=== PATIENT | female | born 1930 | race Asian ===

== ENCOUNTER 2016-12-01 11:04 | Inpatient (IN) | payer OTHER, BC ==
--- NOTE | 2016-12-01 11:43 | CPEKG ---
Heart Rate: 76 RR Interval: 789 P-R Interval: 200 QRSD Interval: 74 QT Interval: 400 QTC Interval: 450 P Tenmile: 41 QRS Tenmile: 11 T Wave Tenmile: 21 EKG Severity - NORMAL ECG - EKG Impression: SINUS RHYTHM Electronically Signed By: Nixon Duffy 01-Dec-2016 22:05:56
[2016-12-01] MEDS ORDERED: NS 1,000 ML IV ONE ×2 (13:15→15:38)
--- NOTE | 2016-12-01 13:20 | EDPHY ---
H & P Stated Complaint: right knee pain, post fall last night, genrealized weakness increasing, cgh Time Seen by Provider: 12/01/16 11:37 HPI/ROS: CHIEF COMPLAINT: FALL HISTORY OF PRESENT ILLNESS: The patient is a 85-year-old female who fell out of bed yesterday evening and has left knee pain. Her left leg is shorter than the left. Her daughter states that it is slightly shorter at baseline but not this much shorter. The patient denies having hip pain. She also has mild elbow pain. She denies hitting her head or back. She has a history of poor mobility and uses a walker. She has been through physical therapy several times. Her daughter states however that today her mobility is much worse than usual and she is barely able to put any weight at all on her left leg. She has a history of high blood pressure and laminectomy. Daughter also states that she has had a mild cold for the last week and gets winded easily when she tries to walk. she has also had a dry cough. No fevers. No sore throat or runny nose. Her primary is Dr. Morel. REVIEW OF SYSTEMS: Constitutional: denies: chills, fever, recent illness, recent injury EENTM: denies: blurred vision, double vision, nose congestion Respiratory: Mild cough and shortness of breath with exertion Cardiac: denies: chest pain, irregular heart rate, lightheadedness, palpitations Gastrointestinal/Abdominal: denies: abdominal pain, diarrhea, nausea, vomiting, blood streaked stools Genitourinary: denies: dysuria, frequency, hematuria, pain Musculoskeletal: See HPI Skin: denies: lesions, rash, jaundice, bruising Neurological: denies: headache, numbness, paresthesia, tingling, dizziness, weakness Hematologic/Lymphatic: denies: blood clots, easy bleeding, easy bruising Immunologic/allergic: denies: HIV/AIDS, transplant EXAM: GENERAL: Well-appearing, well-nourished and in no acute distress. HEAD: Atraumatic, normocephalic. EYES: Pupils equal round and reactive to light, extraocular movements intact, sclera anicteric, conjunctiva are normal. ENT: TMs normal, nares patent, oropharynx clear without exudates. Moist mucous membranes. NECK: Normal range of motion, supple without lymphadenopathy or JVD. LUNGS: Breath sounds clear to auscultation bilaterally and equal. No wheezes rales or rhonchi. HEART: Regular rate and rhythm without murmurs, rubs or gallops. ABDOMEN: Soft, nontender, normoactive bowel sounds. No guarding, no rebound. No masses appreciated. BACK: No CVA tenderness, no spinal tenderness, step-offs or deformities EXTREMITIES: The left leg to inches shorter than the right, pain with logroll left and right. No pain with knee flexion, no laxity with valgus and varus movement or anterior-posterior drawer. NEUROLOGICAL: Cranial nerves II through XII grossly intact. Normal speech, normal gait. 5/5 strength, normal movement in all extremities, normal sensation PSYCH: Normal mood, normal affect. SKIN: Warm, dry, normal turgor, no visible rashes or lesions. Source: Patient Exam Limitations: No limitations - Personal History Current Tetanus/Diphtheria Vaccine: Yes Current Tetanus Diphtheria and Acellular Pertussis (TDAP): Yes - Medical/Surgical History Hx Asthma: No Hx Chronic Respiratory Disease: No Hx Diabetes: No Hx Cardiac Disease: No Hx Renal Disease: No Hx Cirrhosis: No Hx Alcoholism: No Hx HIV/AIDS: No Hx Splenectomy or Spleen Trauma: No Other PMH: PMH:skin cancer, HTN, high chol, memory loss, hx falls,. chronic shoulder pain left, arthritis. PSH:appy, hyst, spinal fusion, lami, cyst removal - Family History Significant Family History: No pertinent family hx - Social History Smoking Status: Never smoked Alcohol Use: Sober Drug Use: None Constitutional: Initial Vital Signs Temperature (C) 36.5 C 12/01/16 11:11 Heart Rate 90 12/01/16 11:11 Respiratory Rate 18 12/01/16 11:11 Blood Pressure 148/61 H 12/01/16 11:11 O2 Sat (%) 90 L 12/01/16 11:11 O2 Delivery Mode Room Air Allergies/Adverse Reactions: meloxicam Allergy (Verified 12/01/16 11:17) Penicillins Allergy (Verified 12/01/16 11:17) Home Medications: Medication Instructions Recorded Atorvastatin Calcium [Lipitor 20 20 mg PO DAILY 12/01/16 mg (*)] Cholecalciferol Vit D3 [Vitamin D3 2,000 units PO BID 12/01/16 (*)] Cyanocobalamin [Vitamin B12 (*)] 500 mcg PO DAILY 12/01/16 Herbals/Supplements -Info Only 1 ea PO DAILY 12/01/16 Hydrochlorothiazide [HCTZ (*)] 12.5 mg PO DAILY 12/01/16 Irbesartan [Avapro] 300 mg PO DAILY 12/01/16 Memantine HCl [Namenda 5 mg (*)] 5 mg PO DAILY 12/01/16 Tolterodine Tartrate [Detrol] 1 mg PO DAILY 12/01/16 Medical Decision Making - Diagnostics Imaging: X-ray: Knee x-ray was obtained. I viewed the images myself on the PACS system. My interpretation of the images is: Negative. The radiologist interpretation is pending. X-ray: Elbow x-ray was obtained. I viewed the images myself on the PACS system. My interpretation of the images is: Negative. The radiologist interpretation is pending. X-ray: Left hip x-ray was obtained. I viewed the images myself on the PACS system. My interpretation of the images is: Shortened, old fracture, nothing acute. The radiologist interpretation is old necrotic changes. X-ray: Chest x-ray was obtained. I viewed the images myself on the PACS system. My interpretation of the images is: negative for acute disease . The radiologist interpretation is pending. ED Course/Re-evaluation: 2:45 p.m. I discussed the case with Dr MARIA ELENA Verdugo who will admit to the medical service. Have ordered antibiotics for the patient's urinary tract infection. I feel that this may be responsible for her weakness and decreased ability to ambulate. Also she has a obliterated left hip joint although it appears to be old. I have paged Radiology to discuss. I discussed the hip with Radiology. They state that it is likely necrosis that had not been treated. Most likely her knee pain is radiating from the hip. No significant injury seen on knee x-ray. I will treat with Rocephin and admit for weakness and urinary tract infection physical therapy. Differential Diagnosis: Partial list of the Differential diagnosis considered include but were not limited to; hip fracture, knee injury, urinary tract infection, dehydration, generalized weakness and although unlikely based on the history and physical exam, I also considered CVA, arrhythmia, head injury. - Data Points Laboratory Results: Laboratory Results 12/01/16 11:50 12/01/16 11:50 12/01/16 12/01/16 12/01/16 14:10 13:22 11:50 WBC 6.49 10^3/uL (3.80-9.50) RBC 3.93 L 10^6/uL (4.18-5.33) Hgb 12.0 L g/dL (12.6-16.3) Hct 34.9 L % (38.0-47.0) MCV 88.8 fL (81.5-99.8) MCH 30.5 pg (27.9-34.1) MCHC 34.4 g/dL (32.4-36.7) RDW 13.2 % (11.5-15.2) Plt Count 156 10^3/uL (150-400) MPV 11.7 fL (8.7-11.7) Neut % (Auto) 72.0 % (39.3-74.2) Lymph % (Auto) 18.2 % (15.0-45.0) Peach % (Auto) 9.2 % (4.5-13.0) Eos % (Auto) 0.2 L % (0.6-7.6) Baso % (Auto) 0.2 L % (0.3-1.7) Nucleat RBC Rel Count 0.0 % (0.0-0.2) Absolute Neuts (auto) 4.68 10^3/uL (1.70-6.50) Absolute Lymphs (auto) 1.18 10^3/uL (1.00-3.00) Absolute Monos (auto) 0.60 10^3/uL (0.30-0.80) Absolute Eos (auto) 0.01 L 10^3/uL (0.03-0.40) Absolute Basos (auto) 0.01 L 10^3/uL (0.02-0.10) Absolute Nucleated RBC 0.00 10^3/uL (0-0.01) Immature Gran % 0.2 % (0.0-1.1) Immature Gran # 0.01 10^3/uL (0.00-0.10) Sodium 131 L mEq/L (134-144) Potassium 4.3 mEq/L (3.5-5.2) Chloride 94 L mEq/L (97-110) Carbon Dioxide 25 mEq/l (22-31) Anion Gap 12 mEq/L (8-16) BUN 13 mg/dL (7-23) Creatinine 0.7 mg/dL (0.6-1.0) Estimated GFR > 60 Glucose 107 H mg/dL (70-100) Calcium 9.2 mg/dL (8.5-10.4) Urine Color YELLOW Urine Appearance HAZY Urine pH 7.0 (5.0-7.5) Ur Specific [place] 1.012 (1.002-1.030) Urine Protein NEGATIVE (NEGATIVE) Urine Ketones NEGATIVE (NEGATIVE) Urine Blood 1+ H (NEGATIVE) Urine Nitrate POSITIVE H (NEGATIVE) Urine Bilirubin NEGATIVE (NEGATIVE) Urine Urobilinogen NEGATIVE EU (0.2-1.0) Ur Leukocyte Esterase 3+ H (NEGATIVE) Urine RBC 1-3 /hpf (0-3) Urine WBC 50-182 H /hpf (0-3) Ur Epithelial Cells Not Reported Urine Bacteria 4+ H /hpf (NONE SEEN) Urine Mucus TRACE /lpf (NONE-1+) Ur Culture Indicated? INDICATED H (NI) Urine Glucose NEGATIVE (NEGATIVE) Influenza Typ A,B (DFA) NEGATIVE FOR FLU (NEGATIVE) Group A Strep Screen NEGATIVE (NEGATIVE) Medications Given: Discontinued Medications Sodium Chloride (Ns) 1,000 mls @ 0 mls/hr IV ONCE ONE PRN Reason: Wide Open Stop: 12/01/16 13:16 Last Admin: 12/01/16 14:13 Dose: 1,000 mls Ceftriaxone Sodium/Dextrose (Rocephin 1 Gm (Premix)) 50 mls @ 100 mls/hr IV EDNOW ONE PRN Reason: Protocol Stop: 12/01/16 15:04 Last Admin: 12/01/16 15:19 Dose: 50 mls Departure - Departure Disposition: [facility] Acute Clinical Impression: Weakness Urinary tract infection Qualifiers: Urinary tract infection type: acute cystitis Hematuria presence: without hematuria Qualifier Code: (N30.00) Acute cystitis without hematuria Condition: Fair
[2016-12-01 13:22] LABS: % IMMATURE GRANULYOCYTES 0.2 % (0.0-1.1); ABSOLUTE IMMATURE GRANULOCYTES 0.01 10^3/uL (0.00-0.10); ADD DIFF? NO; ADD MORPH? NO; ADD SCAN? NO; ATYPICAL LYMPHOCYTE FLAG 30 (0-99); FRAGMENT RBC FLAG 0 (0-99); HEMATOCRIT 34.9 % (38.0-47.0); LEFT SHIFT FLG 0 (0-99); LIPEMIA HEMOLYSIS FLAG 90 (0-99); MEAN CELL HEMOGLOBIN 30.5 pg (27.9-34.1); MEAN CELL HEMOGLOBIN CONCENTR. 34.4 g/dL (32.4-36.7); MEAN CELL VOLUME 88.8 fL (81.5-99.8); MEAN PLATELET VOLUME 11.7 fL (8.7-11.7); PLATELET CLUMPS FLAG 0 (0-99); PLATELET COUNT 156 10^3/uL (150-400); RED BLOOD CELL COUNT 3.93 10^6/uL (4.18-5.33); RED CELL DISTRIBUTION WIDTH 13.2 % (11.5-15.2)
[2016-12-01 13:28] LABS: ANION GAP 12 mEq/L (8-16); CALCIUM 9.2 mg/dL (8.5-10.4); CARBON DIOXIDE 25 mEq/l (22-31); CHLORIDE 94 mEq/L (97-110); CREATININE 0.7 mg/dL (0.6-1.0); GLOMERULAR FILTRATION RATE > 60; GLUCOSE 107 mg/dL (70-100); POTASSIUM 4.3 mEq/L (3.5-5.2); SODIUM 131 mEq/L (134-144)
[2016-12-01 13:47] LABS: COLOR YELLOW; LEUKOCYTE ESTERASE,URINE 3+ (NEGATIVE); NITRITE,URINE POSITIVE (NEGATIVE)
[2016-12-01 14:07] LABS: BACTERIA 4+ /hpf (NONE SEEN); MUCUS TRACE /lpf (NONE-1+); WBC,URINE 50-182 /hpf (0-3)
[2016-12-01] MEDS ORDERED: ACETAMINOPHEN 325 MG TAB PO PRN (15:38)
[2016-12-01] MEDS ORDERED: ONDANSETRON 4 MG/2 ML VIAL IVP PRN (15:38)
--- NOTE | 2016-12-01 15:41 | DX ---
Bilateral Hips Left Elbow Left Knee Chest, Two Views December 01, 2016 Clinical History: 85-year-old female who fell last night, and complains of pain. Comparison Study: None. Findings: LEFT ELBOW (Three Views, at 1:27 p.m.): The bones are demineralized. A metallic watch is seen over t he distal radius and ulna at the level of the wrist, and there is some vascular catheter tubing over the proximal forearm. There is a tiny degenerative enthesophyte along the olecranon. There is no elbo w joint effusion. There is a spur associated with the coronoid process of the proximal ulna. The radi al head is intact, as is the supracondylar humerus. Impression: No acute abnormality. BILATERAL HIPS (AP Pelvis and Frogleg Lateral of Each Hip, Three Views Total, at 1:11 p.m): There is chronic remodeling of the left femoral head and subchondral sclerosis along the apposing articular s urface of the acetabulum. 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 There is no convincing acute osseous abnormality. The ischial pubi c rami are intact. Iiirgxjg-ay-ranicl degenerative osteoarthrosis of the right hip is also observed. There is no symphysis pubis or SI joint diastasis. There are some degenerative features of the lower lumbar spine and the SI joints. The sacral arcuate lines are well-contoured. The sigmoid colon is air -filled, and there is fecal material in the rectum overlying the symphysis pubis. This case was discu ssed with Dr. Riccardo Rose. Impression: 1. Severe degenerative change of the left hip with chronic osteonecrosis and osseous remodeling of th e femoral-acetabular joint space, with no convincing acute osseous abnormality. 2. Hieykuxn-gv-afurmu right hip osteoarthrosis. If there is further clinical concern regarding a supe rimposed acute abnormality, MR imaging could be considered. LEFT KNEE (Four Views, at 1:20 p.m.): The bones are demineralized. There is no acute fracture or disl ocation. There is no suprapatellar joint effusion. There are vascular calcifications over the poplite al fossa. On the sunrise view, there is no patellofemoral joint space narrowing or patellar subluxati on. The tibial plateau is intact. Impression: Bone demineralization, with no acute osseous abnormality. CHEST (AP Upright and Lateral Views, at 1:36 p.m.): Telemetry monitoring lead lines are noted. The ca rdiac silhouette is enlarged, with a left ventricular configuration. There is tortuosity of the desce nding thoracic aorta and also of the right innominate vasculature. There is no focal infiltrate, atel ectasis, pleural effusion, peripheral interstitial edema, or pneumothorax. There is no rib fracture. There are senescent features of the spine and the bones are diffusely demineralized. There are some m ild superior cortical endplate concave compressions at T8, T9, and T10, and there is a moderate compr ession fracture at T11, a severe compression fracture at T12 (with dorsal retropulsion), and a modera te compression fracture at L1. The above features would be consistent with underlying severe osteopor osis. If there is further clinical concern regarding an acute superimposed abnormality, MR imaging co uld be considered Impression: 1. Cardiac silhouette enlargement without congestive heart failure or focal infiltrate. 2. There is no rib fracture or pneumothorax. 3. Age-indeterminate lower thoracic and upper lumbar compression fractures. Clinical correlation is s uggested. A test result has been communicated to a licensed care provider and documented in [employer], 3:20:03 PM , 12/01/2016, [employer] Message ID [id number].
[2016-12-01] MEDS ORDERED: traMADol 50 MG TAB PO PRN (15:43)
--- NOTE | 2016-12-01 16:19 | GHP ---
[f rep st] HISTORY AND PHYSICAL DATE OF ADMISSION: 12/01/2016 CHIEF COMPLAINT: Fatigue and weakness. HISTORY OF PRESENT ILLNESS: An 85-year-old female with a history of hypertension and hyperlipidemia, who presents with overall weakness, keeping her from being able to walk the morning of presentation. The patient denies any subjective fevers or chills. Reports some abdominal and flank pain. Denies any shortness of breath, any pleuritic chest pain, chest pain, palpitations. Denies any dizziness, vision changes, dysphagia, headache, dysuria or hematuria. The patient does have chronic urinary ret ention for which she takes medications. Does not describe having had recent urinary tract infection. She denies any cough, any shortness of breath, or any new rashes. She lives at home with her arlynugh reymundo. PAST MEDICAL HISTORY: 1. Hypertension. 2. Hyperlipidemia. 3. Osteoarthritis of the hips, walks with a walker. 4. Early cognitive decline. SOCIAL HISTORY: Negative for tobacco, alcohol or illicit drugs. The patient lives in her home with her daughter providing 24-hour care. FAMILY HISTORY: Positive for diabetes. ADVANCED DIRECTIVES: The patient is do not resuscitate. Her daughter would be her medical decision maker. REVIEW OF SYSTEMS: A 10-point review of systems is negative with the exception of that reported in t he HPI. PHYSICAL EXAMINATION: VITAL SIGNS: Blood pressure 121/68, heart rate 82, respiratory rate 16, 92% o n room air, 36.8. GENERAL: This is a very petite-appearing elderly female, lying flat in bed. HEEN T: Notable for moist mucous membranes. Eye exam is negative for any icterus. CARDIAC: Patient has regular rate and rhythm. PULMONARY: Good respiratory effort. Clear to auscultation bilaterally. GASTROINTESTINAL: Positive bowel sounds. ABDOMEN: Tender in the suprapubic area. No rebound or gu arding. MUSCULOSKELETAL: Patient's left leg is notably 1-2 inches shorter than her right. Does hav e pain of the left hip with passive and active range of motion. SKIN: Negative for any rashes. BAYLEE ROLOGIC: She is alert and oriented x3. PSYCHIATRIC: She is pleasant and cooperative on interview a nd examination. DATA: White count is 6.4, hematocrit 34.9, platelet count of 156. Sodium 131, creatinine 0.7, blood glucose 107. Urinalysis shows 50 to 182 white blood cells, positive nitrites, 3+ leuk esterase, 1+ blood. She is negative for influenza and group A strep. RADIOLOGY: Chest x-ray, which I personally reviewed and interpreted, shows no acute infiltrates or e olly. Hip x-ray, which I personally reviewed and interpreted, shows severe joint deformation of the left hip consistent with old osseous injuries. There is bony remodeling per Radiology. No acute oss eous injury is described. ASSESSMENT AND PLAN: This is an 85-year-old female presenting with: 1. Fatigue. 2. Acute pyelonephritis. Patient has abdominal discomfort, grossly abnormal urine and systemic symp toms of fatigue and lethargy. Urine cultures have been sent from the emergency department. Will emp irically treat with IV ceftriaxone. Awaiting culture data. Will additionally fluid resuscitate and follow her clinical exam. 3. Hyponatremia. Suspect this is likely secondary to hypovolemia, may be compounded by her home use of hydrochlorothiazide. Will hold the HCTZ, fluid resuscitate overnight and recheck her BMP in the morning. 4. Hypertension. Will continue her other home antihypertensives without change, including irbesarta n. 5. Early dementia. Will continue patient's Namenda. 6. Chronic urinary frequency and retention. Will continue patient's home medications without altera tion. 7. Prophylaxis with Lovenox. 8. Diet regular. 9. Disposition: I expect greater than 2 midnights. The patient is quite elderly, weak. Will requi re IV antibiotics, IV fluid resuscitation, and consultation with Physical Therapy for appropriate dis position planning. I have discussed the case with the emergency room. The patient will be triaged t o the medical-surgical floor for care. /[id number]/MODL
[2016-12-01] MEDS: CHOLECALCIFEROL VIT D3 2,000 UNITS TAB/CAP PO SCH (20:51)
[2016-12-02] MEDS: MEMANTINE HCL 5 MG TAB PO SCH (08:56)
[2016-12-02] MEDS: IRBESARTAN 150 MG TAB PO SCH (08:56)
[2016-12-02] MEDS: TOLTERODINE TARTRATE 1 MG TAB PO SCH (08:56)
[2016-12-02] MEDS: ENOXAPARIN 40 MG/0.4 ML SYR SC SCH (08:57)
[2016-12-02] MEDS: ATORVASTATIN CALCIUM 20 MG TAB PO SCH (08:57)
[2016-12-02] MEDS: CYANO/VITAMIN B12 1000 MCG TAB PO SCH (08:57)
[2016-12-02] MEDS: CHOLECALCIFEROL VIT D3 2,000 UNITS TAB/CAP PO SCH ×2 (08:57→20:39)
[2016-12-02] MEDS ORDERED: Herbals/Supplements -Info Only PO SCH (09:00)
[2016-12-02 13:14] LABS: % IMMATURE GRANULYOCYTES 0.3 % (0.0-1.1); ABSOLUTE IMMATURE GRANULOCYTES 0.02 10^3/uL (0.00-0.10); ADD DIFF? NO; ADD MORPH? NO; ADD SCAN? NO; ATYPICAL LYMPHOCYTE FLAG 60 (0-99); FRAGMENT RBC FLAG 0 (0-99); HEMOGLOBIN 11.9 g/dL (12.6-16.3); LEFT SHIFT FLG 20 (0-99); LIPEMIA HEMOLYSIS FLAG 80 (0-99); MEAN CELL HEMOGLOBIN 30.1 pg (27.9-34.1); MEAN CELL HEMOGLOBIN CONCENTR. 33.1 g/dL (32.4-36.7); MEAN CELL VOLUME 91.1 fL (81.5-99.8); MEAN PLATELET VOLUME 10.7 fL (8.7-11.7); PLATELET CLUMPS FLAG 10 (0-99); PLATELET COUNT 154 10^3/uL (150-400); RED BLOOD CELL COUNT 3.95 10^6/uL (4.18-5.33); RED CELL DISTRIBUTION WIDTH 13.4 % (11.5-15.2)
[2016-12-02] MEDS ORDERED: guaiFENesin/CODEINE PHOS 10 ML UDCUP PO PRN ×2 (13:24→16:51)
[2016-12-02 13:50] LABS: ANION GAP 13 mEq/L (8-16); CARBON DIOXIDE 23 mEq/l (22-31); CHLORIDE 96 mEq/L (97-110); CREATININE 0.8 mg/dL (0.6-1.0); GLOMERULAR FILTRATION RATE > 60; GLUCOSE 105 mg/dL (70-100); POTASSIUM 4.5 mEq/L (3.5-5.2); SODIUM 132 mEq/L (134-144)
[2016-12-02] MEDS ORDERED: BENZONATATE 100 MG CAP PO PRN ×2 (16:51→17:29)
--- NOTE | 2016-12-02 17:38 | HOSPPROG ---
Hospitalist Progress Note Assessment/Plan: Assessment: 85-year-old female presents with acute mechanical fall in the setting of generalized weakness secondary to acute pyelonephritis Plan: 1. Mechanical fall. Acute, most likely secondary to generalized weakness in the setting of infection, received full trauma evaluation -discussed with Dr. Alberts, reports to me that the patient has T and L-spine compression fractures, unknown chronicity with osteonecrosis in the left hip -the patient currently has no tenderness to palpation over her back and is not expressing any back pain, suspect these compression fractures are subacute -will provide calcium and vitamin-D supplementation 2. Pyelonephritis. Acute, evidenced by positive urinalysis plus urinary symptoms plus left flank tenderness to palpation -a day 2 of 7 of antibiotics, continue IV ceftriaxone -abdominal pain improving -urine culture currently pending, monitor for speciation and sensitivity to help guide appropriate antibiotic therapy moving forward 3. Cough. Acute, unclear whether patient has also recently been experiencing a URI -chest x-ray personally interpreted, no evidence of focal airspace disease -physical exam does not reveal acute reactive airways -will attempt symptomatic control with guaifenesin/codeine, Tessalon Perles as needed, duo nebs -continue to monitor CBC to ensure that she is not of all the into infection which would require follow-up chest imaging -get influenza PCR 4. Hyponatremia. Acute, most likely secondary to hypovolemia in the setting of infection -serum sodium level marginally improving with increased oral intake -continue IV fluids, monitor serum sodium level daily Diet. Regular diet Prophylaxis. High risk patient, Lovenox 40 Code status. Do not resuscitate Disposition. Anticipated discharge is uncertain this time, patient continues to have generalized weakness rendering her unable to safely ambulate or complete her ADLs, requiring assistance and most likely [facility] facility placement. Patient was appropriately designated as inpatient admission status at the time of her admission by Dr. Verdugo, with anticipation of greater than 2 midnight length of stay based on reasonable medical necessity including acute pyelonephritis, acute mechanical fall in the setting of an elderly individual. Subjective: Patient's daughter present, discussed patient's ability to ambulate , her needs [facility] facility, her desire to go to a facility where her is currently receiving hospice care Objective: Vital Signs Temp Pulse Resp BP Pulse Ox 36.4 C 86 16 132/80 H 93 12/02/16 15:30 12/02/16 15:30 12/02/16 15:30 12/02/16 15:30 12/02/16 15:30 Laboratory Results 12/02/16 12:54 12/02/16 12:54 12/01/16 12/02/16 12/03/16 05:59 05:59 05:59 Intake Total 50 1350 Output Total 400 720 Balance -350 630 - Time Spent With Patient Time Spent with Patient: greater than 35 minutes Time Spent with Patient: Greater than 35 minutes spent on this patients care, greater than 50% of time spent counseling, educating, and coordinating care regarding the above mentioned plan. - Physical Exam Cardiovascular: regular rate and rhythym, systolic murmur (2/6 systolic murmur at the sternum and apex), No irregularly irregular, No tachycardia, No edema Respiratory: other (Ongoing cough), No reduced air movement, No expiratory wheeze, No inspiratory crackles, No bronchial breath sounds Gastrointestinal: normoactive bowel sounds, soft, non-tender abdomen, no palpable masses Musculoskeletal: other (Mild tenderness to palpation in the left hip, pain on flexion at 110 degrees in the left hip, no tenderness to palpation over the T or L-spine) Neurologic: AAOx3, sensation intact bilaterally Psychiatric: interacting appropriately, not anxious, not encephalopathic, thought process linear ICD10 Worksheet Patient Problems: Problems Problem Status Diagnosed Urinary tract infection Acute Weakness Acute
[2016-12-02] MEDS: IPRATROPIUM/ALBUTEROL 3 ML DEYVIAL IH SCH ×3 (18:02→21:12)
[2016-12-03] MEDS: IPRATROPIUM/ALBUTEROL 3 ML DEYVIAL IH SCH ×3 (05:39→17:02)
[2016-12-03 06:13] LABS: % IMMATURE GRANULYOCYTES 0.2 % (0.0-1.1); ABSOLUTE IMMATURE GRANULOCYTES 0.01 10^3/uL (0.00-0.10); ADD DIFF? NO; ADD MORPH? NO; ADD SCAN? NO; ATYPICAL LYMPHOCYTE FLAG 70 (0-99); FRAGMENT RBC FLAG 0 (0-99); HEMATOCRIT 30.9 % (38.0-47.0); HEMOGLOBIN 10.5 g/dL (12.6-16.3); LEFT SHIFT FLG 0 (0-99); LIPEMIA HEMOLYSIS FLAG 90 (0-99); MEAN CELL HEMOGLOBIN 30.3 pg (27.9-34.1); MEAN PLATELET VOLUME 11.1 fL (8.7-11.7); PLATELET CLUMPS FLAG 0 (0-99); PLATELET COUNT 139 10^3/uL (150-400); RED BLOOD CELL COUNT 3.47 10^6/uL (4.18-5.33); RED CELL DISTRIBUTION WIDTH 13.4 % (11.5-15.2)
[2016-12-03 06:27] LABS: ANION GAP 10 mEq/L (8-16); CALCIUM 8.5 mg/dL (8.5-10.4); CARBON DIOXIDE 24 mEq/l (22-31); CHLORIDE 100 mEq/L (97-110); CREATININE 0.8 mg/dL (0.6-1.0); GLOMERULAR FILTRATION RATE > 60; GLUCOSE 83 mg/dL (70-100); SODIUM 134 mEq/L (134-144)
[2016-12-03] MEDS: MEMANTINE HCL 5 MG TAB PO SCH (08:49)
[2016-12-03] MEDS: TOLTERODINE TARTRATE 1 MG TAB PO SCH (08:50)
[2016-12-03] MEDS: CHOLECALCIFEROL VIT D3 2,000 UNITS TAB/CAP PO SCH ×2 (08:50→19:53)
[2016-12-03] MEDS: ATORVASTATIN CALCIUM 20 MG TAB PO SCH (08:50)
[2016-12-03] MEDS: CYANO/VITAMIN B12 1000 MCG TAB PO SCH (08:50)
[2016-12-03] MEDS: ENOXAPARIN 40 MG/0.4 ML SYR SC SCH (08:51)
[2016-12-03] MEDS: IRBESARTAN 150 MG TAB PO SCH (08:51)
--- NOTE | 2016-12-03 15:57 | HOSPPROG ---
Hospitalist Progress Note Assessment/Plan: Assessment: 85-year-old female presents with acute mechanical fall in the setting of generalized weakness secondary to acute pyelonephritis Plan: 1. Mechanical fall. Acute, most likely secondary to generalized weakness in the setting of infection, received full trauma evaluation -T and L-spine compression fractures, unknown chronicity with osteonecrosis in the left hip -the patient currently has no tenderness to palpation over her back and is not expressing any back pain, suspect these compression fractures are subacute -will provide calcium and vitamin-D supplementation 2. Pyelonephritis. Acute, evidenced by positive urinalysis plus urinary symptoms plus left flank tenderness to palpation -a day 3 of 7 of antibiotics, continue IV ceftriaxone -abdominal tenderness improving -urine culture currently pending, monitor for speciation and sensitivity to help guide appropriate antibiotic therapy moving forward 3. Cough. Acute, unclear whether patient has also recently been experiencing a URI -chest x-ray personally interpreted, no evidence of focal airspace disease -physical exam does not reveal acute reactive airways -attempting symptomatic control with guaifenesin/codeine, Tessalon Perles as needed, duo nebs -continue to monitor CBC to ensure that she is not of all the into infection which would require follow-up chest imaging -influenza PCR neg 4. Hyponatremia. Acute, most likely secondary to hypovolemia in the setting of infection -resolved Diet. Regular diet Prophylaxis. High risk patient, Lovenox 40 Code status. Do not resuscitate Disposition. Anticipated discharge is uncertain this time, pending safe discharge level of care obtained, currently unsafe to ambulate independently Subjective: Patient denies any pain, cough is improving Objective: Vital Signs Temp Pulse Resp BP Pulse Ox 36.6 C 79 17 95/65 L 92 12/03/16 14:37 12/03/16 14:37 12/03/16 14:37 12/03/16 14:37 12/03/16 14:37 Laboratory Results 12/03/16 04:55 12/03/16 04:55 12/02/16 12/03/16 12/04/16 05:59 05:59 05:59 Intake Total 50 1350 Output Total 400 720 275 Balance -350 630 -275 - Physical Exam Constitutional: no apparent distress, appears nourished, not in pain Cardiovascular: systolic murmur (2/6 at the sternum and apex), No irregularly irregular, No tachycardia, No edema Respiratory: no respiratory distress, no rales or rhonchi, clear to auscultation , No expiratory wheeze, No inspiratory crackles, No bronchial breath sounds Gastrointestinal: normoactive bowel sounds, soft, non-tender abdomen, no palpable masses Neurologic: AAOx3, sensation intact bilaterally Psychiatric: interacting appropriately, not anxious, not encephalopathic, thought process linear ICD10 Worksheet Patient Problems: Problems Problem Status Diagnosed Urinary tract infection Acute Weakness Acute
[2016-12-04] MEDS: IPRATROPIUM/ALBUTEROL 3 ML DEYVIAL IH SCH ×3 (00:17→09:19)
[2016-12-04 05:06] VITALS: TEMP 98.2
[2016-12-04 05:38] LABS: % IMMATURE GRANULYOCYTES 0.2 % (0.0-1.1); ABSOLUTE IMMATURE GRANULOCYTES 0.01 10^3/uL (0.00-0.10); ADD DIFF? NO; ADD MORPH? NO; ADD SCAN? YES; FRAGMENT RBC FLAG 0 (0-99); HEMATOCRIT 31.4 % (38.0-47.0); HEMOGLOBIN 10.3 g/dL (12.6-16.3); LEFT SHIFT FLG 10 (0-99); LIPEMIA HEMOLYSIS FLAG 80 (0-99); MEAN CELL HEMOGLOBIN 29.9 pg (27.9-34.1); MEAN CELL HEMOGLOBIN CONCENTR. 32.8 g/dL (32.4-36.7); MEAN PLATELET VOLUME 10.7 fL (8.7-11.7); PLATELET CLUMPS FLAG 0 (0-99); PLATELET COUNT 147 10^3/uL (150-400); RED BLOOD CELL COUNT 3.45 10^6/uL (4.18-5.33); RED CELL DISTRIBUTION WIDTH 13.3 % (11.5-15.2)
[2016-12-04 05:47] LABS: ATYPICAL LYMPHOCYTE FLAG 150 (0-99)
[2016-12-04 05:50] LABS: ANION GAP 11 mEq/L (8-16); CALCIUM 8.8 mg/dL (8.5-10.4); CARBON DIOXIDE 24 mEq/l (22-31); CHLORIDE 101 mEq/L (97-110); CREATININE 0.8 mg/dL (0.6-1.0); GLOMERULAR FILTRATION RATE > 60; GLUCOSE 97 mg/dL (70-100); POTASSIUM 4.5 mEq/L (3.5-5.2); SODIUM 136 mEq/L (134-144)
[2016-12-04 06:44] LABS: SCAN NEGATIVE
[2016-12-04 07:43] VITALS: BP 154/84
[2016-12-04 09:23] VITALS: PULSE 95; RESP 16; O2SAT 95
[2016-12-04] MEDS: IRBESARTAN 150 MG TAB PO SCH (09:57)
[2016-12-04] MEDS: CYANO/VITAMIN B12 1000 MCG TAB PO SCH (09:57)
[2016-12-04] MEDS: ENOXAPARIN 40 MG/0.4 ML SYR SC SCH (09:58)
[2016-12-04] MEDS: ATORVASTATIN CALCIUM 20 MG TAB PO SCH (09:58)
[2016-12-04] MEDS: CHOLECALCIFEROL VIT D3 2,000 UNITS TAB/CAP PO SCH (09:58)
[2016-12-04] MEDS: MEMANTINE HCL 5 MG TAB PO SCH (09:58)
--- NOTE | 2016-12-04 10:57 | PDIAF ---
- Diagnosis Diagnosis: Pyelonephritis, Weakness, Fall Code Status: Do Not Resuscitate - Medication Management Discharge Medications: Medications to Continue on Transfer Atorvastatin Calcium [Lipitor 20 mg (*)] 20 mg PO DAILY 12/01/16 [Last Taken 08/08] Cholecalciferol Vit D3 [Vitamin D3 (*)] 2,000 units PO BID 12/01/16 [Last Taken 12/01/16] Cyanocobalamin [Vitamin B12 (*)] 500 mcg PO DAILY 12/01/16 [Last Taken 11/30/16] Herbals/Supplements -Info Only 1 ea PO DAILY 12/01/16 [Last Taken 11/30/16] Hydrochlorothiazide [HCTZ (*)] 12.5 mg PO DAILY 12/01/16 [Last Taken 12/01/16] Irbesartan [Avapro] 300 mg PO DAILY 12/01/16 [Last Taken 12/01/16] Memantine HCl [Namenda 5 mg (*)] 5 mg PO DAILY 12/01/16 [Last Taken 11/30/16] Tolterodine Tartrate [Detrol 1MG (*)] 1 mg PO DAILY 12/01/16 [Last Taken ] Acetaminophen [Tylenol 325mg (*)] 650 mg PO Q4HRS PRN #0 tab 12/04/16 [Last Taken Unknown] Albuterol [Proventil Inhaler HFA (*)] 2 puffs IH Q4 PRN #1 mdi 12/04/16 [Last Taken Unknown] Benzonatate [Tessalon Pearles] 100 - 200 mg PO TID PRN #0 cap 12/04/16 [Last Taken Unknown] Ciprofloxacin HCl [Ciprofloxacin] 500 mg PO BID #6 tab 12/04/16 [Last Taken Unknown] Guaifenesin/Codeine Phosphate [Guaifenesin-Codeine Liquid] 10 ml PO Q4 PRN #40 dose 12/04/16 [Last Taken Unknown] Cabinet Installer Antibiotics: Ciprofloxacin 500mg 2xd PO for 3 days [facility] Antibiotic Stop Date: 12/07/16 Discharge Medications: Refer to the Discharge Home Medication list for PRN reason. PICC Care - Routine: N/A - Orders Services needed: Registered Nurse, Certified Hazardous Waste Technician, Physical Therapy, Occupational Therapy Oxygen: NA Diet Recommendation: no restrictions on diet Cobb: Not applicable - Labs/Radiology BMP Date: 12/10/16 Call or Fax Lab and Imaging Results to: Dr. Morel - Follow Up Care Current Providers and Referrals: Orestes Morel MD [Primary Care Provider] - 3 days of d/c SNF/Rehab
--- NOTE | 2016-12-04 11:05 | PDDCSUM ---
Discharge Summary Discharge Summary: DISCHARGE SUMMARY FOLLOW-UP ITEMS: Repeat creatinine BUN and lytes in 1 week with results to Dr. Morel DATE OF ADMISSION: 12/01/2016 DATE OF DISCHARGE: 12/04/2016 DISCHARGE DIAGNOSES: 1. Acute pyelonephritis 2. Acute mechanical fall 3. Acute cough 4. Acute hyponatremia 5. Subacute thoracic and lumbar vertebral body fractures CONSULTATIONS: None PROCEDURES / IMAGING: Chest x-ray demonstrating subacute T and L-spine compression fractures CHIEF COMPLAINT: Acute weakness and mechanical fall SUBJECTIVE: Patient continues to be weak and unable to ambulate or complete ADLs PHYSICAL EXAM ON DISCHARGE: His systolic blood pressure is 1/50, heart rate 60s, afebrile overnight, satting well on room air, no flank tenderness or abdominal tenderness, bowel sounds are present, no inspiratory crackles expiratory wheezes or bronchial breath sounds, lungs are clear to auscultation bilaterally, motor strength is 5/ 5 bilateral lower extremities LABS ON DISCHARGE: Sodium 136, creatinine 0.8, white blood cell count 4200, hemoglobin 10.3 HOSPITAL COURSE BY PROBLEM: 1. Acute pyelonephritis. Evidenced by positive urinalysis plus urinary symptoms plus left flank tenderness to palpation as well as E coli growing in urine culture with greater than 100,000 colonies. Patient received 4 days of IV antibiotic therapy and will complete 3 subsequent days for total of 7 days of antibiotics. She will be receiving ciprofloxacin 500 mg twice daily given her underlying reported penicillin allergy. 2. Acute mechanical fall. Patient's presenting symptom was acute mechanical fall most likely secondary to generalized weakness in the setting of infection. She received a full trauma evaluation and she was found to have subacute thoracic and lumbar spine fractures which will be further discussed below. Patient remained a high fall risk and was unable to complete activities of daily living, requiring [facility]. 3. Acute cough. It is unclear whether patient was also experiencing a URI, but her chest x-ray demonstrates no focal airspace disease and her physical exam did not demonstrate any reactive airway disease. Patient received symptomatic control with guaifenesin/codeine, Tessalon Perles as needed, albuterol inhaler as needed. She will be continued on these supportive measures. 4. Acute hyponatremia. Most likely secondary to hypovolemia in the setting of infection, as well as concomitant use of ARB and hydrochlorothiazide. Patient has had her hydrochlorothiazide held during this hospitalization she received IV fluids. Her serum sodium level has stabilized. She will be re-initiated on her home antihypertensive medications with repeat BUN and creatinine and lytes next week to her PCP. 5. Subacute thoracic and lumbar vertebral body fractures. Patient compression fractures noted on chest x-ray, patient has no tenderness to palpation over the affected areas and I suspect these are subacute fractures, not warranting additional treatment with brace or kyphoplasty. The patient currently has no pain and outside receiving calcium and vitamin-D supplementation no further intervention is indicated. DISCHARGE MEDICATIONS: Please see official discharge medication reconciliation sheet in chart , calcium and vitamin-D supplementation, ciprofloxacin 500 mg twice daily for 3 days, as needed guaifenesin/codeine, Tessalon Perles as needed, albuterol inhaler as needed. DISCHARGE INSTRUCTIONS: Patient should follow up with Dr. Morel approximately 3 days after discharge from prison facility. TIME SPENT: Greater than 30 minutes were spent on direct patient care, as well as discharge planning and preparation.
--- NOTE | 2016-12-04 11:08 | PDIAF ---
- Diagnosis Diagnosis: Pyelonephritis, Weakness, Fall Code Status: Do Not Resuscitate - Medication Management Discharge Medications: Medications to Continue on Transfer Atorvastatin Calcium [Lipitor 20 mg (*)] 20 mg PO DAILY 12/01/16 [Last Taken 08/08] Cholecalciferol Vit D3 [Vitamin D3 (*)] 2,000 units PO BID 12/01/16 [Last Taken 12/01/16] Cyanocobalamin [Vitamin B12 (*)] 500 mcg PO DAILY 12/01/16 [Last Taken 11/30/16] Herbals/Supplements -Info Only 1 ea PO DAILY 12/01/16 [Last Taken 11/30/16] Hydrochlorothiazide [HCTZ (*)] 12.5 mg PO DAILY 12/01/16 [Last Taken 12/01/16] Irbesartan [Avapro] 300 mg PO DAILY 12/01/16 [Last Taken 12/01/16] Memantine HCl [Namenda 5 mg (*)] 5 mg PO DAILY 12/01/16 [Last Taken 11/30/16] Tolterodine Tartrate [Detrol 1MG (*)] 1 mg PO DAILY 12/01/16 [Last Taken ] Acetaminophen [Tylenol 325mg (*)] 650 mg PO Q4HRS PRN #0 tab 12/04/16 [Last Taken Unknown] Albuterol [Proventil Inhaler HFA (*)] 2 puffs IH Q4 PRN #1 mdi 12/04/16 [Last Taken Unknown] Benzonatate [Tessalon Pearles] 100 - 200 mg PO TID PRN #0 cap 12/04/16 [Last Taken Unknown] Calcium Carbonate/Vitamin D3 [Calcium 500-Vit D3 600 Tablet] 1 each PO BID #60 tablet 12/04/16 [Last Taken Unknown] Ciprofloxacin HCl [Ciprofloxacin] 500 mg PO BID #6 tab 12/04/16 [Last Taken Unknown] Guaifenesin/Codeine Phosphate [Guaifen-Codeine 100-10 mg/5 ml] 10 ml PO Q4 PRN # 40 dose 12/04/16 [Last Taken Unknown] Plush Finisher Antibiotics: Ciprofloxacin 500mg 2xd PO for 3 days [facility] Antibiotic Stop Date: 12/07/16 Discharge Medications: Refer to the Discharge Home Medication list for PRN reason. PICC Care - Routine: N/A - Orders Services needed: Registered Nurse, Certified Patient Support Specialist, Physical Therapy, Occupational Therapy Oxygen: NA Diet Recommendation: no restrictions on diet Cobb: Not applicable - Labs/Radiology BMP Date: 12/10/16 Imaging Orders: Please get DEXA scan and Vitamin D level after patient discharged from SNF Call or Fax Lab and Imaging Results to: Dr. Morel - Follow Up Care Current Providers and Referrals: Orestes Morel MD [Primary Care Provider] - 3 days of d/c SNF/Rehab
== END 2016-12-04 12:31 | DRG 690 ==
LOC: OBSVTOIN 15:38 → F1N 15:40
PROVIDERS: ADMIT Hospitalist; ATTEND Hospitalist
DX: N10 Acute pyelonephritis (principal); E87.1 Hypo-osmolality and hyponatremia; M48.54XA Collapsed vertebra, not elsewhere classified, thoracic region, initial encounter for fracture; M48.56XA Collapsed vertebra, not elsewhere classified, lumbar region, initial encounter for fracture; R05 Cough; W06.XXXA Fall from bed, initial encounter; B96.20 Unspecified Escherichia coli [E. coli] as the cause of diseases classified elsewhere; I10 Essential (primary) hypertension; M16.0 Bilateral primary osteoarthritis of hip; E78.5 Hyperlipidemia, unspecified; F03.90 Unspecified dementia, unspecified severity, without behavioral disturbance, psychotic disturbance, mood disturbance, and anxiety; R33.8 Other retention of urine; R35.0 Frequency of micturition; Z66 Do not resuscitate; Z85.820 Personal history of malignant melanoma of skin; Z88.0 Allergy status to penicillin
CPT/HCPCS: 96365; 97162-GP; 97166-GO; 97535-GO; G8978-GP-CL; G8979-GP-CJ; G8987-GO-CL; G8988-GO-CJ; G8989-GO-CJ; J0696; J1650

== ENCOUNTER → 2017-01-11 | Outpatient (CLI) | payer OTHER, BC | LOC: CIMAGING 11:28 | PROVIDERS: ATTEND Internal Medicine | DX: M16.0 Bilateral primary osteoarthritis of hip (principal); M25.561 Pain in right knee; J40 Bronchitis, not specified as acute or chronic | CPT/HCPCS: 71020-PO; 73502-PO; 73562-PO ==

== ENCOUNTER 2017-11-07 23:12 | Inpatient (IN) | payer OTHER, BC ==
--- NOTE | 2017-11-07 23:55 | EDPHY ---
General - History Smoking Status: Never smoked Narrative: CHIEF COMPLAINT: Fall, multiple complaints HISTORY OF PRESENT ILLNESS: Patient arrives by EMS with reports of mechanical fall. She says she was walking this evening with her walker when she tripped. She thinks that her foot slipped on a hardwood floor. She landed on her right hip, right arm and her head. She is not sure if she lost consciousness. She does have a mild headache. She has no neck pain or stiffness. Some mild chest wall tenderness with palpation only. No thoracic back pain. She does have severe lumbar back pain. No abdominal pain at this time, but she did have some lower abdominal discomfort when she fell. She has no pain in the left leg which she does have right hip pain. All these areas are worse with palpation and movement. There is no radiating pain. There is no numbness or tingling of the perineum. There is no numbness or tingling of the arms or legs. No weakness of the arms or legs. The pain in the right hip is too severe for her to bear weight on. She lives in assisted living. No other associated complaints or modifying factors. REVIEW OF SYSTEMS: Ten systems reviewed and are negative unless otherwise noted in the HPI PCP: Physician at the assisted living facility SPECIALISTS: Does not recall PAST MEDICAL HISTORY: Hypertension, dyslipidemia, osteoarthritis SOCIAL HISTORY: Nonsmoker. Lives in assisted living at [facility] FAMILY HISTORY: Noncontributory EXAMINATION General Appearance: Alert, no distress Head: normocephalic, atraumatic. No Gray sign. No raccoon eyes. No scalp laceration or depression. Eyes: Bilateral arcus senilis. Pupils equal and round, no conjunctival pallor or injection. EOMs intact ENT, Mouth: Mucous membranes moist. Airway patent Neck: Normal inspection, supple, no midline tenderness. No crepitus, step-off or deformity. Soft tissue tenderness of the right trapezius. Respiratory: Lungs are clear to auscultation. No wheezing rhonchi or crackles Cardiovascular: Regular rate and rhythm. Symmetric radial pulses 2+. Symmetric DP pulses 2+. Gastrointestinal: Abdomen is soft and nontender. No distention. No tympany. No rigidity. No guarding. Back: Midline tenderness of the lumbar spine. No crepitus, step-off deformity. There is no tenderness of the thoracic spine. Neurological: GCS 15. Cranial nerves 2-12 grossly intact. A&O, nonfocal, gait not tested due to pain right hip pain Skin: Warm and dry, no rash. Multiple age spots. No laceration or abrasion evident Extremities: Tenderness on the right forearm midshaft. No tenderness of the right hand, snuffbox or right elbow. No tenderness of the right shoulder. Range of motion of the upper extremities remains symmetric. There is tenderness of the right greater trochanter and hip. Range of motion of the right hip is intact but painful. No tenderness of the left lower extremity of the right foot or heel. Psychiatric: Mood and affect normal DIFFERENTIAL DIAGNOSES: Including but not limited to concussion, intracranial hemorrhage, skull fracture , cervical sprain, cervical fracture, hip fracture, hip contusion, low back strain, lumbar fracture MDM: 11:55 p.m. Mechanical fall with closed head injury. Mild headache, severe low back pain, mild right forearm pain, mild right hip pain. She also has minimal chest wall tenderness. Abdominal exam is benign. There is no laceration or puncture evident. Vital signs are within normal limits. She is not on anticoagulants. I ordered C-collar during my examination. I have ordered CT scans of the head and cervical spine as well as lumbar spine. I have ordered plain films of the chest, hip and right forearm. Laboratory studies will be obtained to rule out suggestion of intra-abdominal injury. She is in no acute distress vital signs stable. 1:00 a.m. I have reviewed the plain films of the chest, right forearm and hip. There are extensive degenerative changes of the left hip which did not correlate clinically with today's injury. I do not appreciate a fracture of right hip. Chest x-ray reveals senescent chronic changes without acute fracture, pneumothorax or hemothorax. Right forearm x-ray does not reveal any acute findings to me. CT scans of the head, cervical spine and lumbar spine are pending. 1:30 a.m. Case discussed with radiologist Dr. Alberts. We discussed the findings of the CT scans of the head, cervical spine lumbar spine. Please review these as documented. The more severe areas are T12, L1-L2 compression fractures of uncertain chronicity. These do clinically correlate with her most severe area of pain. Patient will need to be admitted due to inability to ambulate from her pain. She will need a Neurosurgery consult as well. I do not feel she warrants an emergent MRI at this time as she has no neuro changes within these distributions. 1:40 a.m. Case discussed with hospitalist Dr. Maynard. She will admit the patient to her service. She is requesting that I consult Neurosurgery. 1:44 a.m. Case discussed with the on-call neurosurgeon Dr. Edge. He will provide consultation for the patient. No orders from him at this time. I asked him if he agrees that the patient could wait for MRI later this morning he agrees based on the patient's history and lack of neuro findings at this time. At this time the patient is admitted in stable condition. SUPERVISION: Patient was independently examined, but I discussed the case with my secondary supervising physician Dr. Ponce ([facility]) PHYSICIAN DOCUMENTATION: The patient was evaluated and managed by the Physician Mortgage Loan Counselor. My co- signature indicates that I have reviewed this chart and I agree with the findings and plan of care as documented. I am the secondary supervising physician. (Sharmin Ponce) - Objective Vital Signs: Initial Vital Signs Temperature (C) 36.9 C 11/07/17 23:20 Heart Rate 83 11/07/17 23:20 Respiratory Rate 18 11/07/17 23:20 Blood Pressure 103/58 L 11/07/17 23:20 O2 Sat (%) 92 11/07/17 23:20 O2 Delivery Mode Room Air Allergies/Adverse Reactions: aspirin Allergy (Verified 11/08/17 03:12) meloxicam Allergy (Verified 11/07/17 23:30) Penicillins Allergy (Verified 11/07/17 23:30) Home Medications: Medication Instructions Recorded Atorvastatin Calcium [Lipitor 20 20 mg PO DAILY 12/01/16 mg (*)] Cholecalciferol Vit D3 [Vitamin D3 2,000 units PO BID 12/01/16 (*)] Cyanocobalamin [Vitamin B12 (*)] 500 mcg PO DAILY 12/01/16 Herbals/Supplements -Info Only 1 ea PO DAILY 12/01/16 Hydrochlorothiazide [HCTZ (*)] 12.5 mg PO DAILY 12/01/16 Irbesartan [Avapro] 300 mg PO DAILY 12/01/16 Memantine HCl [Namenda 5 mg (*)] 5 mg PO DAILY 12/01/16 Tolterodine Tartrate [Detrol 1MG 1 mg PO DAILY 12/01/16 (*)] Acetaminophen [Tylenol 325mg (*)] 650 mg PO Q4HRS PRN #0 tab 12/04/16 Albuterol [Proventil Inhaler HFA 2 puffs IH Q4 PRN #1 mdi 12/04/16 (*)] Benzonatate [Tessalon Pearles] 100 - 200 mg PO TID PRN #0 cap 12/04/16 Calcium Carbonate/Vitamin D3 1 each PO BID #60 tablet 12/04/16 [Calcium 500-Vit D3 600 Tablet] Ciprofloxacin HCl [Ciprofloxacin] 500 mg PO BID #6 tab 12/04/16 Guaifenesin/Codeine Phosphate 10 ml PO Q4 PRN #40 dose 12/04/16 [Guaifen-Codeine 100-10 mg/5 ml] Laboratory Results: Laboratory Results 11/07/17 23:59 11/07/17 23:57 11/07/17 11/07/17 11/07/17 23:59 23:57 23:57 WBC 7.29 10^3/uL 10^3/uL (3.80-9.50) RBC 3.72 10^6/uL L 10^6/uL (4.18-5.33) Hgb 11.6 g/dL L g/dL (12.6-16.3) Hct 33.3 % L % (38.0-47.0) MCV 89.5 fL fL (81.5-99.8) MCH 31.2 pg pg (27.9-34.1) MCHC 34.8 g/dL g/dL (32.4-36.7) RDW 13.5 % % (11.5-15.2) Plt Count 172 10^3/uL 10^3/uL (150-400) PT 12.4 SEC SEC (12.0-15.0) INR 0.90 (0.83-1.16) APTT 21.6 SEC L SEC (23.0-38.0) Sodium 139 mEq/L mEq/L (134-144) Potassium 3.8 mEq/L mEq/L (3.5-5.2) Chloride 100 mEq/L mEq/L (97-110) Carbon Dioxide 24 mEq/l mEq/l (22-31) Anion Gap 15 mEq/L mEq/L (8-16) BUN 22 mg/dL mg/dL (7-23) Creatinine 0.7 mg/dL mg/dL (0.6-1.0) Estimated GFR > 60 Glucose 124 mg/dL H mg/dL (70-100) Calcium 9.0 mg/dL mg/dL (8.5-10.4) Total Bilirubin 0.5 mg/dL mg/dL (0.1-1.4) Conjugated Bilirubin 0.3 mg/dL mg/dL (0.0-0.5) Unconjugated Bilirubin 0.2 mg/dL mg/dL (0.0-1.1) AST 29 IU/L IU/L (14-46) ALT 32 IU/L IU/L (9-52) Alkaline Phosphatase 30 IU/L L IU/L (38-126) Total Protein 7.3 g/dL g/dL (6.3-8.2) Albumin 3.7 g/dL g/dL (3.5-5.0) Lipase 76 IU/L IU/L (23-300) Departure - Departure Disposition: [facility] In[facility] Acute Clinical Impression: Thoracic vertebral fracture Qualifiers: Encounter type: initial encounter Thoracic vertebra fracture level: T11 Fracture type: closed Fracture morphology: unspecified fracture morphology Qualified Code(s): S22.089A - Unspecified fracture of T11-T12 vertebra, initial encounter for closed fracture Lumbar vertebral fracture Qualifiers: Encounter type: initial encounter Lumbar vertebra fracture level: L1 Fracture type: closed Fracture morphology: unspecified fracture morphology Qualified Code (s): S32.019A - Unspecified fracture of first lumbar vertebra, initial encounter for closed fracture Condition: Fair
[2017-11-08 00:32] LABS: ALANINE AMINOTRANSFERASE 32 IU/L (9-52); ALBUMIN 3.7 g/dL (3.5-5.0); ALKALINE PHOSPHATASE 30 IU/L (38-126); ANION GAP 15 mEq/L (8-16); ASPARTATE AMINOTRANSFERASE 29 IU/L (14-46); BILIRUBIN,TOTAL 0.5 mg/dL (0.1-1.4); BILIRUBIN-CONJUGATED 0.3 mg/dL (0.0-0.5); BILIRUBIN-UNCONJUGATED 0.2 mg/dL (0.0-1.1); CARBON DIOXIDE 24 mEq/l (22-31); CHLORIDE 100 mEq/L (97-110); CREATININE 0.7 mg/dL (0.6-1.0); GLOMERULAR FILTRATION RATE > 60; GLUCOSE 124 mg/dL (70-100); POTASSIUM 3.8 mEq/L (3.5-5.2); SODIUM 139 mEq/L (134-144); TOTAL PROTEIN 7.3 g/dL (6.3-8.2)
[2017-11-08 00:46] LABS: HEMATOCRIT 33.3 % (38.0-47.0); HEMOGLOBIN 11.6 g/dL (12.6-16.3); MEAN CELL HEMOGLOBIN 31.2 pg (27.9-34.1); MEAN CELL HEMOGLOBIN CONCENTR. 34.8 g/dL (32.4-36.7); MEAN CELL VOLUME 89.5 fL (81.5-99.8); RED BLOOD CELL COUNT 3.72 10^6/uL (4.18-5.33); RED CELL DISTRIBUTION WIDTH 13.5 % (11.5-15.2)
[2017-11-08 00:57] LABS: APTT 21.6 SEC (23.0-38.0); INR 0.9 (0.83-1.16); PROTIME(PATIENT) 12.4 SEC (12.0-15.0)
[2017-11-08] MEDS ORDERED: LORazepam 0.5 MG TAB PO PRN (01:43)
[2017-11-08] MEDS ORDERED: LORazepam 2 MG/ML INJ IVP ONE (03:24)
[2017-11-08 04:52] LABS: % IMMATURE GRANULYOCYTES 0.2 % (0.0-1.1); ABSOLUTE IMMATURE GRANULOCYTES 0.01 10^3/uL (0.00-0.10); ADD DIFF? NO; ADD MORPH? NO; ADD SCAN? NO; ATYPICAL LYMPHOCYTE FLAG 30 (0-99); FRAGMENT RBC FLAG 0 (0-99); HEMATOCRIT 31.6 % (38.0-47.0); LEFT SHIFT FLG 0 (0-99); LIPEMIA HEMOLYSIS FLAG 90 (0-99); MEAN CELL HEMOGLOBIN 31.1 pg (27.9-34.1); MEAN CELL HEMOGLOBIN CONCENTR. 34.8 g/dL (32.4-36.7); MEAN CELL VOLUME 89.3 fL (81.5-99.8); MEAN PLATELET VOLUME 9.9 fL (8.7-11.7); PLATELET CLUMPS FLAG 20 (0-99); PLATELET COUNT 158 10^3/uL (150-400); RED BLOOD CELL COUNT 3.54 10^6/uL (4.18-5.33); RED CELL DISTRIBUTION WIDTH 13.5 % (11.5-15.2)
[2017-11-08 05:04] LABS: ANION GAP 11 mEq/L (8-16); CALCIUM 8.9 mg/dL (8.5-10.4); CARBON DIOXIDE 25 mEq/l (22-31); CHLORIDE 102 mEq/L (97-110); CREATININE 0.8 mg/dL (0.6-1.0); GLOMERULAR FILTRATION RATE > 60; GLUCOSE 106 mg/dL (70-100); POTASSIUM 3.8 mEq/L (3.5-5.2); SODIUM 138 mEq/L (134-144)
--- NOTE | 2017-11-08 05:32 | GHP ---
[f rep st] HISTORY AND PHYSICAL DATE OF ADMISSION: 11/08/2017 SOURCE: Patient provides history, appears reliable. She is awake, alert, and oriented x3. She has a noted history of mild dementia, but at this time is oriented, and appears reliable. Her EMR was reviewed, and case discussed with ED provider. CHIEF COMPLAINT: Back pain. HISTORY OF PRESENT ILLNESS: This is a very pleasant, 86-year-old female with past medical history significant for hypertension, hyperlipidemia, overactive bladder, early dementia, osteoarthritis, anemia, spinal stenosis, chronic back pain, history of falls who presents to the emergency department today following a mechanical fall. By report, fall was witnessed as patient was ambulating with her walker down the hallway. Patient notes that she recalls walking with her walker. She denies any lightheadedness, chest pain, shortness of breath prior to her fall. Patient states she got her foot stuck on 1 of the legs of the walker, and subsequently fell on her side, hitting her head. Patient is unsure if she had any loss of consciousness. She does remember after her fall complaining of some left wall chest pain, but denies any chest pressure. Patient feels like her left side of her chest feels a little heavy after her fall, but not prior to it. Patient is reported to have fallen on her right side. She denies any recent illnesses. No fevers, chills. No cough. No shortness of breath. No rhinorrhea. No dysuria or hematuria. No lower extremity edema. No PND or orthopnea. REVIEW OF SYSTEMS: Negative, except as noted above. ALLERGIES: Mobic and penicillin. HOME MEDICATIONS: As per EMR, Detrol 1 mg p.o. daily, Namenda 5 mg p.o. daily, irbesartan 300 mg p.o. daily, HCTZ 12.5 mg p.o. daily, vitamin B12 500 mcg p.o. daily, vitamin D3 2,000 units p.o. b.i.d., calcium with vitamin D p.o. b.i.d., Tessalon Perles 100-200 mg p.o. t.i.d. p.r.n., atorvastatin 20 mg p.o. daily, albuterol 2 puffs inhaled q.4 hours p.r.n., and Tylenol 325 mg p.o. q.4 hours p.r.n. for pain, fever. PAST MEDICAL HISTORY: Significant for UTI and history of pyelo with admission in November 2016, hypertension, hyperlipidemia, overactive bladder, history of falls, early dementia, osteoarthritis, anemia, spinal stenosis, chronic back pain. PAST SURGICAL HISTORY: Significant for laminectomy. FAMILY HISTORY: Significant for diabetes. SOCIAL HISTORY: Patient lives at [facility]. She does not smoke, drink, or do drugs. She does have an adult daughter in town who is also her MD LOVELY. CODE STATUS: DNR/DNI. As per discussion with patient, she desires to be kept comfortable. She does not want any heroic measures. This is consistent with her code status on her last hospital stay in November of this year. Patient reports her daughter is MD DEBRAA, if needed. EMR from 2017, earlier this year, was reviewed, and patient's code status was similar at that time. We will verify with patient's daughter, given patient's history of dementia. However, she is oriented x3 at this time. PHYSICAL EXAMINATION: VITALS: Upon arrival to the emergency department, blood pressure 103/58, heart rate is 83, respiratory rate 18, O2 sat 92% on room air with temperature of 36.9. Vitals currently: Blood pressure 88/60, heart rate 82, respiratory rate 16, O2 sat is 91% on room air. GENERAL: No acute distress. Very pleasant, frail, elderly female who is lying quietly in bed. She is awoken easily to name. HEAD: Normocephalic, atraumatic. EYES: Extraocular muscles grossly intact. No scleral icterus or conjunctival injection. ENT: Mucous membranes appear slightly dry. No pharyngeal erythema or exudates. NECK: Supple. Trachea midline. CV: Regular rate and rhythm with a holosystolic murmur 2/6 to 3/6. There is patient with complaints of some mild superficial tenderness to palpation on the chest wall. RESPIRATORY: Lungs clear to auscultation bilaterally. No wheezes, rales, or rhonchi appreciated. ABDOMEN: Positive bowel sounds. Soft, nontender to palpation. No rebound, guarding, or masses appreciated. : No suprapubic tenderness to palpation. No Cobb catheter in place. EXTREMITIES: Patient with grossly generalized weakness, but moves all extremities while lying in bed. Patient with some decreased range of motion in the left ankle which is slightly inverted with decreased range of motion in the ankle. PSYCHIATRIC: Patient without any anxiety or agitation. She is awake, alert, and oriented x3 to person, place, and time. LABORATORY STUDIES: WBC 7.29, H and H 11.6 and 33.3, MCV 89.5, platelet count is 172. PT 12.4, INR 0.90, PTT is 21.6. Sodium is 139, potassium 3.8, chloride 100, CO2 24, anion gap is 15, BUN 22, creatinine 0.7, GFR greater than 60, glucose 124, calcium 9.0, total bili 0.5, ALT is 32, AST is 29, alk phos is 30, total protein 7.3, albumin is 3.7, lipase 76. IMAGING: Preliminary radiologist's reports reviewed. CT head with advanced atrophy, nothing acute. Cervical spine with multilevel degenerative changes with minor, probably old, T1 -T2 superior cortical concavities. Lumbar spine: Mild superior T10, moderate T12, and severe L1, and moderate L2 compression fractures with intervertebral vacuum disc phenomenon. No paravertebral or epidural hematoma and dorsal retropulsion of L2 with severe central cord stenosis, L4 and L5 laminectomies. Chest x-ray image reviewed myself, report pending. Perihilar prominence, but there is no evidence of acute infiltrate. Borderline cardiomegaly. Tortuous aorta. Old left lower rib fractures, stable. Left forearm: No acute fractures noted. Hip x-ray: Significant bilateral hip arthritis and chronic changes noted compared to imaging from December 2016. 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 ASSESSMENT AND PLAN: Pleasant, 86-year-old female status post mechanical fall who presents now with intractable back pain. 1. Intractable back pain. Pain currently improved. Patient has Tylenol, Ernest , and Dilaudid available p.r.n. for pain. I have also added on Lidoderm patch and Ativan. At this time, patient while very still is comfortable. She does have multiple levels of some subacute versus chronic versus acute vertebral fractures. Physical therapy/occupational therapy has been ordered. Neurosurgery was consulted from the emergency department. Will plan to see patient in the morning, after her MRI which has been ordered for thoracic and lumbar spine without contrast. Patient will have on-call Ativan secondary to reports of claustrophobia. 2. Vertebral fractures. Plan as noted above. 3. Mechanical fall. Physical Therapy/Occupational Therapy consulted. Bed alarm. Fall precautions. Physical therapy/occupational therapy. 4. History of benign essential hypertension. We will plan to continue patient' s Avapro, hydrochlorothiazide. 5. Hyperlipidemia. Continue atorvastatin. 6. History of dementia, early symptoms. At this time, patient is oriented and answers questions appropriately. We will plan to continue her memantine, once medication list has been reconciled. 7. Osteoarthritis. Supportive care, mobilization, physical therapy/ occupational therapy as above. 8. Anemia, likely of chronic disease with stable H and H per previous electronic medical record review. Patient without any evidence of active bleeding at this time. 9. Spinal stenosis. Patient without any focal neurologic changes, status post laminectomy. Further plan as noted above. 10. Fluid, electrolyte, nutrition. Patient will receive some gentle IV fluid hydration while she will be n.p.o. prior to her MRI and awaiting neurosurgery recommendations. If no plans for any intervention which is possibility, then we will advance patient's diet to regular. 11. Prophylaxis. Sequential compression devices. Holding anticoagulation with history of falls. Sequential compression devices with a bed alarm. 12. Code status is do not resuscitate/do not intubate. This is discussed with the patient. She is able to explain appropriately her choices and why. Her do not resuscitate code status is also consistent with previous hospital stay. DISPOSITION: Patient has been admitted to observation on the medical floor at this time, pending neurosurgical, PT/OT recommendations. /[id number]/MODL MTDD
[2017-11-08] MEDS: HYDROmorphONE/DILAUDID 1 MG/ML INJ IVP PRN (08:40)
[2017-11-08] MEDS: LIDOCAINE 5% 1 EA PATCH TD SCH (08:42)
[2017-11-08] MEDS: ONDANSETRON 4 MG/2 ML VIAL IVP PRN (08:51)
[2017-11-08] MEDS: LR 1,000 ML IV SCH (08:51)
[2017-11-08] MEDS ORDERED: ACETAMINOPHEN 325 MG TAB PO PRN ×2 (09:00→09:26)
[2017-11-08] MEDS ORDERED: Herbals/Supplements -Info Only PO SCH (09:00)
--- NOTE | 2017-11-08 09:23 | GCON ---
[f rep st] CONSULTATION DATE OF CONSULTATION: 11/08/2017 REASON FOR CONSULTATION: Low back pain status post fall. HOSPITAL COURSE/HISTORY OF MAJOR MEDICAL FINDINGS: The patient is an 86-year- old female, who recently sustained a fall while walking with her walker. She does have a history of early dementia, but states that she did not have any leg pain prior to this fall. She has mid back and low back pain. She denies any loss of bowel or bladder control or saddle anesthesia. She does have bilateral leg weakness, left greater than right, and states that her left leg feels difficult to move. REVIEW OF SYSTEMS: Review of systems is negative other than what is stated in the HPI. Please see pertinent negatives and pertinent positives. PAST MEDICAL HISTORY: Significant for hypertension, hyperlipidemia, overactive bladder, early dementia, osteoarthritis, anemia, spinal stenosis, chronic back pain. SOCIAL HISTORY: The patient lives at [facility]. She denies smoking or using any alcohol or illicit drugs. Her adult daughter who lives here is her medical power of youth teacher. PAST SURGICAL HISTORY: Significant for a lumbar laminectomy. FAMILY HISTORY: Significant for diabetes. ALLERGIES: Are to Mobic and penicillin. HOME MEDICATIONS: Include Detrol, memantine, irbesartan, HCTZ, vitamin B12, vitamin D3, calcium, vitamin D, Tessalon Perles, atorvastatin, albuterol, Tylenol as needed for pain. PHYSICAL EXAM: VITAL: BP 127/66, pulse is 76. She is 98% on room air. Temperature is 37. GENERAL: The patient is in no acute distress. She is alert and oriented x3. She answers questions appropriately and affect is appropriate to given situation. HEENT: Cranial nerves 2-12 are grossly intact. EOMI and PERRLA. 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 The patient's bilateral lower extremities on the right side, she is a 5/5 in her iliopsoas, hamstrings, quadriceps, plantar flexion, dorsiflexion, EHL. On the left side, she does have some pain with movement and her left hip flexor is a 4/5. Quad and plantar flexion are 5/5. Her dorsiflexion, the patient has some difficulty with reproducing this motion due to the pain, but does appear to be antigravity , as well as her EHL. DIAGNOSTIC REVIEW: Patient underwent a CT of her lumbar spine, which demonstrated mild T10 and T12 compression fractures with severe L1 and L2 compression fractures. She has had a prior laminectomy at L4-5. The patient also underwent a cervical spine CT, which demonstrated diffuse degenerative disease with old minor T1 and T2 endplate fractures. Her head CT demonstrated advanced cerebral cortical atrophy. There is no acute intracranial abnormality. ASSESSMENT/PLAN: The patient is an 86-year-old female with mild dementia, who had a fall from standing while using her walker, and since that time, has had mid and low back pain and left lower extremity weakness. The patient was seen both by Dr. Juarez and myself. At this point, we will order an MRI to further characterize these fractures given her multiple fractures that she has back there. We will hold off on ordering a brace until we determine the acuteness level of her fractures. Would optimize pain management. If the patient has any change in neurologic or motor exam, please notify Neurosurgery. /[id number]/MODL MTDD
[2017-11-08] MEDS: ACETAMINOPHEN 325 MG TAB PO PRN (12:38)
[2017-11-08] MEDS: TOLTERODINE TARTRATE 1 MG TAB PO SCH (12:39)
[2017-11-08] MEDS: FOLIC ACID 1 MG TAB PO SCH (12:39)
[2017-11-08] MEDS: HYDROCHLOROTHIAZIDE 25 MG TAB PO SCH (12:40)
[2017-11-08] MEDS: IRBESARTAN 150 MG TAB PO SCH (12:40)
--- NOTE | 2017-11-08 13:51 | HOSPPROG ---
Hospitalist Progress Note Assessment/Plan: 86-year-old female presents emergency room after suffering a mechanical fall. Complains of back pain. 1st encounter, chart reviewed. # back pain Awaiting MRI Appreciate neurosurgery consult # multiple vertebral fractures Awaiting MRI Further recs per Neurosurgery # pain Continue supportive care # history of hypertension Continue home med Stable #History of hyperlipidemia Stable # anemia Stable in chronic # disposition Unclear Await MRI Further recs per Neurosurgery Discussed with Neurosurgery Changed to inpatient status Subjective: Complains of being thirsty. Still having significant back pain. Very tired. Objective: Vital Signs Temp Pulse Resp BP Pulse Ox 36.9 C 73 16 130/65 H 97 11/08/17 12:26 11/08/17 12:26 11/08/17 12:26 11/08/17 12:40 11/08/17 12:26 Laboratory Results 11/08/17 04:44 11/08/17 04:44 11/07/17 11/08/17 11/09/17 05:59 05:59 05:59 Intake Total 5 Balance 5 PT 12.4 SEC (12.0-15.0) 11/07/17 23:57 INR 0.90 (0.83-1.16) 11/07/17 23:57 - Physical Exam Constitutional: appears nourished, chronically ill appearing, uncomfortable Eyes: PERRL, anicteric sclera, EOMI Ears, Nose, Mouth, Throat: moist mucous membranes, hearing normal, ears appear normal Cardiovascular: regular rate and rhythym, No JVD, No edema Respiratory: no respiratory distress, no rales or rhonchi, reduced air movement Gastrointestinal: normoactive bowel sounds, No tenderness, No ascites Skin: warm, normal color, No erythema Musculoskeletal: pain with ROM, muscular tenderness, generalized weakness Neurologic: AAOx3 Psychiatric: interacting appropriately, not anxious, not encephalopathic, thought process linear ICD10 Worksheet Patient Problems: Problems Problem Status Onset Urinary tract infection Acute Weakness Acute Thoracic vertebral fracture Acute Lumbar vertebral fracture Acute
--- NOTE | 2017-11-08 15:08 | ASMTCMCOM ---
CM Note CM Note Notes: Chart reviewed. S/P mechanical fall. Lives at [facility]. PT and OT pending. Patient needs TBD at this time. CM to follow. Date Signed: 11/08/2017 11:31 AM Electronically Signed By:Suyapa Clifton RN
--- NOTE | 2017-11-08 18:08 | PDMN ---
Medical Necessity Medical necessity: change to IP; los>2mn for multiple vertebral fx's r/t mechanical fall, w/significant back pain; requires further imaging to determine treatment, and pain management; comorbid dementia, advanced age, htn hld, OA, chronic back pain and hx prior lami; per order and progress note 11/08/17
[2017-11-08] MEDS: HYDROCODONE/APAP 5/325 TAB PO PRN (18:11)
[2017-11-08] MEDS ORDERED: LORazepam 2 MG/ML INJ ONE (20:28)
[2017-11-08] MEDS: CYANO/VITAMIN B12 1000 MCG TAB PO SCH (20:32)
[2017-11-08] MEDS: ATORVASTATIN CALCIUM 20 MG TAB PO SCH (20:33)
[2017-11-08] MEDS: MEMANTINE HCL 5 MG TAB PO SCH (20:33)
[2017-11-08] MEDS: PATCH REMOVAL 1 EA PATCH TD SCH (23:40)
[2017-11-09] MEDS: LR 1,000 ML IV SCH (00:19)
[2017-11-09] MEDS: HYDROCODONE/APAP 5/325 TAB PO PRN ×4 (02:09→21:51)
--- NOTE | 2017-11-09 07:39 | NEUSURGPN ---
Assessment/Plan: Assessment: 86 yo female that is admitted to with back pain and multiple compression fractures Plan: -pt with majority lower back pain -MRI of the T and L spine show old compression fractures of T1, T2, T12, L1, L2- no acute compression fractures -noted most severe stenosis at L4/5 and L5/S1 with moderate to severe BNFS -ordered a caudal injection with IR today -PT/OT ordered -will d/w Dr Juarez regarding need for brace -warning signs given -call with any questions or concerns -take medications as directed Subjective: Awake and alert. NAD. Eating/drinking and voiding. No f/c/n/v/d Objective: AAO x 3, PERRLA/EOMI no droop CN 2-12 grossly intact +lt touch 5/5 BUE/BLE = Neuro Check Frequency: per routine Urinary Catheter in Place: No - Physician Discussed Patient with Dr.: Juarez Patient Seen by Dr.: Juarez Neurosurgery Physical Exam - Vitals, I&O, Labs I and O 11/08/17 11/09/17 11/10/17 05:59 05:59 05:59 Intake Total 1545 Output Total 350 Balance 1195 Weight 56.13 kg Intake: Oral (ml) 250 IV Infused (ml) 1295 Lr 1,000 ml @ 75 mls/hr 1295 IV CONT KIESHA Rx#: [id number] Output: Urine (ml) 350 Bedpan 350 Other: Intake Quantity Yes Sufficient Number of Voids Bedpan 2 1 Incontinence 2 Vital Signs Temp Pulse Resp BP Pulse Ox 36.8 C 59 L 16 152/72 H 95 11/09/17 04:00 11/09/17 04:00 11/09/17 04:00 11/09/17 04:00 11/09/17 04:00 ICD10 Worksheet Patient Problems: Problems Problem Status Onset Lumbar vertebral fracture Acute Thoracic vertebral fracture Acute Urinary tract infection Acute Weakness Acute
[2017-11-09] MEDS: IRBESARTAN 150 MG TAB PO SCH (09:23)
[2017-11-09] MEDS: TOLTERODINE TARTRATE 1 MG TAB PO SCH (09:23)
[2017-11-09] MEDS: HYDROCHLOROTHIAZIDE 25 MG TAB PO SCH (09:24)
[2017-11-09] MEDS: FOLIC ACID 1 MG TAB PO SCH (09:24)
[2017-11-09] MEDS: LIDOCAINE 5% 1 EA PATCH TD SCH (09:25)
--- NOTE | 2017-11-09 17:29 | HOSPPROG ---
Hospitalist Progress Note Assessment/Plan: 86 yo F with hx of dementia and spinal stenosis presenting s/p mechanical fall with back pain # back pain: NSG following, T/L spine MRI notable for old compression fractures and spinal stenosis but does not appear to be surgical, plan is for likely brace to be placed. PT/OT to evaluate. Continue pain management, currently reasonably well controlled. Plan is for epidural spinal injection in the am-- discussed plan with IR. # compression fractures: as above, none appear to be acute # anemia: chronic, has trended down slightly since admission, will continue to trend # htn: continue irbersartan # HLD: continue statin # dispo: IP status, will need > 48 hours stay for eval/mgmt of above Patient new to my care. Old records reviewed and summarized as above. Care plan reviewed with IR. Subjective: no significant overnight events, patient feeling slightly better, awaiting spinal injection to be performed in am Objective: Vital Signs Temp Pulse Resp BP Pulse Ox 36.4 C 65 16 113/72 97 11/09/17 15:42 11/09/17 15:42 11/09/17 15:42 11/09/17 15:42 11/09/17 15:42 11/08/17 11/09/17 11/10/17 05:59 05:59 05:59 Intake Total 1545 610 Output Total 350 100 Balance 1195 510 PT 12.4 SEC (12.0-15.0) 11/07/17 23:57 INR 0.90 (0.83-1.16) 11/07/17 23:57 awake alert nad anicteric op clear rrr no mrg soft nt nd no cce warm dry well perfused oriented appropriate ICD10 Worksheet Patient Problems: Problems Problem Status Onset Urinary tract infection Acute Weakness Acute Thoracic vertebral fracture Acute Lumbar vertebral fracture Acute
[2017-11-09] MEDS: MEMANTINE HCL 5 MG TAB PO SCH (21:50)
[2017-11-09] MEDS: CYANO/VITAMIN B12 1000 MCG TAB PO SCH (21:51)
[2017-11-09] MEDS: ATORVASTATIN CALCIUM 20 MG TAB PO SCH (21:52)
[2017-11-09] MEDS: PATCH REMOVAL 1 EA PATCH TD SCH (22:18)
[2017-11-09 23:01] VITALS: RESP 16
[2017-11-10] MEDS: ONDANSETRON 4 MG/2 ML VIAL IVP PRN (03:18)
[2017-11-10 04:49] LABS: % IMMATURE GRANULYOCYTES 0.3 % (0.0-1.1); ABSOLUTE IMMATURE GRANULOCYTES 0.02 10^3/uL (0.00-0.10); ADD DIFF? NO; ADD MORPH? NO; ADD SCAN? NO; ATYPICAL LYMPHOCYTE FLAG 50 (0-99); FRAGMENT RBC FLAG 0 (0-99); HEMATOCRIT 31.2 % (38.0-47.0); HEMOGLOBIN 10.3 g/dL (12.6-16.3); LEFT SHIFT FLG 0 (0-99); LIPEMIA HEMOLYSIS FLAG 80 (0-99); MEAN CELL HEMOGLOBIN 30.4 pg (27.9-34.1); MEAN PLATELET VOLUME 10.2 fL (8.7-11.7); PLATELET CLUMPS FLAG 10 (0-99); PLATELET COUNT 151 10^3/uL (150-400); RED BLOOD CELL COUNT 3.39 10^6/uL (4.18-5.33); RED CELL DISTRIBUTION WIDTH 13.4 % (11.5-15.2)
[2017-11-10] MEDS: HYDROmorphONE/DILAUDID 1 MG/ML INJ IVP PRN (07:59)
[2017-11-10] MEDS: IRBESARTAN 150 MG TAB PO SCH (09:54)
[2017-11-10] MEDS: TOLTERODINE TARTRATE 1 MG TAB PO SCH (09:55)
[2017-11-10] MEDS: HYDROCHLOROTHIAZIDE 25 MG TAB PO SCH (09:55)
[2017-11-10] MEDS: FOLIC ACID 1 MG TAB PO SCH (09:55)
[2017-11-10] MEDS: LIDOCAINE 5% 1 EA PATCH TD SCH (10:53)
--- NOTE | 2017-11-10 11:40 | NEUSURGPN ---
Assessment/Plan: Assessment: 86 yo female that is admitted to with back pain and multiple compression fractures(found to be old on MRI) Plan: -pt with majority lower back pain -MRI of the T and L spine show old compression fractures of T1, T2, T12, L1, L2- no acute compression fractures -noted most severe stenosis at L4/5 and L5/S1 with moderate to severe BNFS -ordered a caudal injection with IR- this is to happen today- will monitor response to this -PT/OT ordered -will d/w Dr Juarez regarding need for brace- no need at this time -warning signs given -call with any questions or concerns Subjective: Awake and alert. Doing well. pain is the same in her back. No leg pain, numbness , tingling, or weakness. Objective: AAO x 3, PERRLA/EOMI no droop CN 2-12 grossly intact +lt touch 5/5 BUE/BLE = - Physician Discussed Patient with Dr.: Juarez Neurosurgery Physical Exam - Vitals, I&O, Labs I and O 11/09/17 11/10/17 11/11/17 05:59 05:59 05:59 Intake Total 1545 610 350 Output Total 350 750 200 Balance 1195 -140 150 Weight 56.13 kg 55.13 kg Intake: Oral (ml) 250 610 350 IV Infused (ml) 1295 Lr 1,000 ml @ 75 mls/hr 1295 IV CONT KIESHA Rx#: [id number] Output: Urine (ml) 350 750 200 Bedpan 350 350 Bedside Commode 400 200 Other: Intake Quantity Yes No: needs to drink more Sufficient Number of Voids Bedpan 2 1 Bedside Commode 3 Incontinence 2 1 Vital Signs Temp Pulse Resp BP Pulse Ox 36.9 C 65 16 137/67 H 94 11/10/17 07:17 11/10/17 07:17 11/10/17 07:17 11/10/17 09:55 11/10/17 10:07 Laboratory Results 11/10/17 04:26 ICD10 Worksheet Patient Problems: Problems Problem Status Onset Lumbar vertebral fracture Acute Thoracic vertebral fracture Acute Urinary tract infection Acute Weakness Acute
--- NOTE | 2017-11-10 12:35 | ASMTCMCOM ---
CM Note CM Note Notes: At this time PT rec is SNF, spoke w pt and dghtr who request referral to [facility]; referral sent in [employer]. CM to follow. Date Signed: 11/10/2017 12:34 PM Electronically Signed By:IRVIN Pablo
--- NOTE | 2017-11-10 12:55 | HOSPPROG ---
Hospitalist Progress Note Assessment/Plan: 86 yo F with hx of dementia and spinal stenosis presenting s/p mechanical fall with back pain. Today is my first encounter w the patient, chart reviewed. # back pain: NSG following, T/L spine MRI notable for old compression fractures and spinal stenosis but does not appear to be surgical, plan is for likely brace to be placed. PT/OT seeing. Continue pain management, currently reasonably well controlled. Plan is for epidural spinal injection this afternoon. # compression fractures: as above, none appear to be acute #gait instability w falls # anemia: chronic, has trended down slightly since admission, will continue to trend # htn: continue irbesartan #frequency w urination -daughter is concerned her mom has a UTI and this has been the etiology in the past of her falling -patient denies burning, but has increase frequency -will check ua # HLD: continue statin #Plan : to get steroid injection today to see if helps her mobilize, then hopefully to SNF. Patient usually lives independently in [place]. This will be her 3rd admission to a SNF per her daughter. Subjective: Judy is having no pain while in bed. Objective: Vital Signs Temp Pulse Resp BP Pulse Ox 36.9 C 65 16 137/67 H 94 11/10/17 07:17 11/10/17 07:17 11/10/17 07:17 11/10/17 09:55 11/10/17 10:07 Laboratory Results 11/10/17 04:26 11/09/17 11/10/17 11/11/17 05:59 05:59 05:59 Intake Total 1545 610 350 Output Total 350 750 200 Balance 1195 -140 150 PT 12.4 SEC (12.0-15.0) 11/07/17 23:57 INR 0.90 (0.83-1.16) 11/07/17 23:57 - Physical Exam Constitutional: no apparent distress, appears nourished, not in pain Eyes: PERRL Ears, Nose, Mouth, Throat: hearing normal Cardiovascular: regular rate and rhythym Respiratory: no respiratory distress Gastrointestinal: normoactive bowel sounds Skin: warm Neurologic: AAOx3 Psychiatric: interacting appropriately, not anxious ICD10 Worksheet Patient Problems: Problems Problem Status Onset Lumbar vertebral fracture Acute Thoracic vertebral fracture Acute Urinary tract infection Acute Weakness Acute
[2017-11-10] MEDS: ACETAMINOPHEN 325 MG TAB PO PRN ×2 (14:05→21:04)
[2017-11-10] MEDS ORDERED: HYDROmorphone HCL/NS/PF 0.4 MG/2 ML SYR IVP PRN (16:00)
[2017-11-10 16:27] LABS: COLOR YELLOW; LEUKOCYTE ESTERASE,URINE 2+ (NEGATIVE); NITRITE,URINE POSITIVE (NEGATIVE)
[2017-11-10 16:35] LABS: BACTERIA 3+ /hpf (NONE SEEN); MUCUS TRACE /lpf (NONE-1+); WBC,URINE 50-182 /hpf (0-3)
[2017-11-10] MEDS ORDERED: TRIAMCINOLONE ACETONIDE 200 MG/5 ML MDV IM ONE (16:37)
[2017-11-10] MEDS ORDERED: IOPAMIDOL (ISOVUE-M 300) 15 ML VIAL ONE (16:37)
[2017-11-10] MEDS ORDERED: LACTULOSE 20 GM/30 ML UDCUP PO PRN (16:42)
[2017-11-10] MEDS ORDERED: MAGNESIUM HYDROXIDE 30 ML UDCUP PO PRN (16:42)
[2017-11-10] MEDS ORDERED: POLYETHYLENE GLYCOL 3350 17 GM PKT PO PRN (16:42)
[2017-11-10] MEDS ORDERED: BISACODYL 10 MG SUPP PR PRN (16:42)
[2017-11-10] MEDS: SENNOSIDES/DOCUSATE SODIUM TAB PO SCH (21:02)
[2017-11-10] MEDS: ATORVASTATIN CALCIUM 20 MG TAB PO SCH (21:02)
[2017-11-10] MEDS: CYANO/VITAMIN B12 1000 MCG TAB PO SCH (21:02)
[2017-11-10] MEDS: MEMANTINE HCL 5 MG TAB PO SCH (21:02)
[2017-11-10] MEDS: PATCH REMOVAL 1 EA PATCH TD SCH (21:03)
[2017-11-10 23:53] VITALS: TEMP 97.5
[2017-11-11 06:51] LABS: HEMOGLOBIN 12.1 g/dL (12.6-16.3)
[2017-11-11 08:30] VITALS: BP 187/86; PULSE 66; O2SAT 98
--- NOTE | 2017-11-11 08:37 | HOSPPROG ---
Hospitalist Progress Note Assessment/Plan: 86 yo F with hx of dementia and spinal stenosis presenting s/p mechanical fall with back pain. # back pain: NSG following, T/L spine MRI notable for old compression fractures and spinal stenosis but does not appear to be surgical, plan is for likely brace to be placed. PT/OT seeing. -s/p steroid injection # compression fractures: as above, none appear to be acute #gait instability w falls # anemia: chronic, has trended down slightly since admission, will continue to trend # htn: continue irbesartan #pyuria -urine in the past grew out ecoli which was pansensitive # HLD: continue statin #Plan : Subjective: Judy is feeling better today/ up in chair, has no c/o back pain. Objective: Vital Signs Temp Pulse Resp BP Pulse Ox 36.4 C 66 16 187/86 H 98 11/10/17 23:51 11/11/17 08:00 11/11/17 08:00 11/11/17 08:00 11/11/17 08:00 Laboratory Results 11/11/17 05:30 11/10/17 11/11/17 11/12/17 05:59 05:59 05:59 Intake Total 610 350 Output Total 750 250 Balance -140 100 PT 12.4 SEC (12.0-15.0) 11/07/17 23:57 INR 0.90 (0.83-1.16) 11/07/17 23:57 - Physical Exam Constitutional: no apparent distress, appears nourished, not in pain Eyes: PERRL Ears, Nose, Mouth, Throat: hearing normal Cardiovascular: regular rate and rhythym Respiratory: no respiratory distress Skin: warm Musculoskeletal: generalized weakness Neurologic: AAOx3 Psychiatric: interacting appropriately, not anxious ICD10 Worksheet Patient Problems: Problems Problem Status Onset Lumbar vertebral fracture Acute Thoracic vertebral fracture Acute Urinary tract infection Acute Weakness Acute
[2017-11-11] MEDS: IRBESARTAN 150 MG TAB PO SCH (09:08)
[2017-11-11] MEDS: TOLTERODINE TARTRATE 1 MG TAB PO SCH (09:08)
[2017-11-11] MEDS: HYDROCHLOROTHIAZIDE 25 MG TAB PO SCH (09:09)
[2017-11-11] MEDS: FOLIC ACID 1 MG TAB PO SCH (09:11)
[2017-11-11] MEDS: SENNOSIDES/DOCUSATE SODIUM TAB PO SCH (09:11)
--- NOTE | 2017-11-11 09:42 | PDIAF ---
- Diagnosis Diagnosis: back pain, compression fx, uti, anemia Code Status: Do Not Resuscitate - Medication Management Discharge Medications: Medications to Continue on Transfer Atorvastatin Calcium [Lipitor 20 mg (*)] 20 mg PO HS 12/01/16 [Last Taken ] Cyanocobalamin [Vitamin B12 (*)] 500 mcg PO HS 12/01/16 [Last Taken 11/07/17] Herbals/Supplements -Info Only 1 ea PO DAILY 12/01/16 [Last Taken 11/30/16] Hydrochlorothiazide [HCTZ (*)] 12.5 mg PO DAILY 12/01/16 [Last Taken 11/07/17] Memantine HCl [Namenda 5 mg (*)] 5 mg PO HS 12/01/16 [Last Taken 11/07/17] Tolterodine Tartrate [Detrol 1MG (*)] 1 mg PO DAILY 12/01/16 [Last Taken ] Acetaminophen [Tylenol 325mg (*)] 1,300 mg PO BID PRN 11/08/17 [Last Taken 11/07 09:00] Alendronate Sodium [Fosamax 70 MG (*)] 70 mg PO SA@0700 11/08/17 [Last Taken ] Folic Acid [Folic Acid 1 MG (*)] 1 mg PO DAILY 11/08/17 [Last Taken 11/07/17] Irbesartan [Avapro 150 mg (*)] 300 mg PO DAILY 11/08/17 [Last Taken 11/07/17] Cephalexin [Keflex (*)] 250 mg PO Q6HRS #11 cap 11/11/17 [Last Taken Unknown] Lidocaine 5% [Lidoderm 5% Patch (*)] 1 ea TD DAILY patch 11/11/17 [Last Taken Unknown] Patch Removal 1 ea TD DAILY21 patch 11/11/17 [Last Taken Unknown] Polyethylene Glycol 3350 [Miralax 17 gm (*)] 17 gm PO DAILY PRN pkt 11/11/17 [ Last Taken Unknown] Sennosides/Docusate Sodium [Senokot-S] 1 - 2 tab PO BID tab 11/11/17 [Last Taken Unknown] Discharge Medications: Refer to the Discharge Home Medication list for PRN reason. PICC Care - Routine: N/A - Orders Services needed: Physical Therapy, Occupational Therapy Diet Recommendation: no restrictions on diet Additional: gvie antibiotics for 3 days total. - Labs/Radiology BMP Date: 01/17/18 HCT/HGB Date: 01/07/18 - Follow Up Care Current Providers and Referrals: UNKNOWN, [Other] - As per Instructions
[2017-11-11] MEDS: LIDOCAINE 5% 1 EA PATCH TD SCH (09:45)
--- NOTE | 2017-11-11 10:30 | GDS ---
[f rep st] DISCHARGE SUMMARY DISCHARGE DIAGNOSES: 1. Back pain. 2. Compression fractures. 3. Gait instability. 4. Anemia. 5. Hypertension. 6. Urinary tract infection. 7. Hyperlipidemia. HISTORY OF PRESENT ILLNESS: Briefly, the patient is an 86-year-old female with a history of dementia and spinal stenosis. She presented to the emergency room after sustaining a fall and developed back pain. CONSULTATION: Alanis Castro, physician rehab assistant with neurosurgical services. HOSPITAL COURSE PER PROBLEM: 1. Back pain. Neurosurgery is following along with her. Thoracic and lumbar spine MRI is notable for old compression fractures and spinal stenosis. She is status post a steroid injection and felt markedly better. 2. Compression fractures. Nothing appears to be acute. 3. Gait instability with falls. She has had multiple falls over the past year. She will go to rehabilitation today for strengthening. 4. Anemia. This has been chronic. We will have her follow up with her PCP. Her hemoglobin and hematocrit improved today. 5. Hypertension. She is on irbesartan. 6. Urinary tract infection. Urine culture is currently pending. In the past, she has grown be E coli which was pansensitive. Will treat her with Keflex. 7. Hyperlipidemia. On statin therapy. VITAL SIGNS: At discharge, blood pressure is elevated 187/86, heart rate is 66 , respiratory rate 16, O2 saturation on room air 95%, temperature is 36.4 Celsius. MEDICATIONS AT DISCHARGE: Please see the EMR. DISCHARGE INSTRUCTIONS: 1. Further followup with her PCP in regard to her urinary tract infection. 2. If she develops fever, chills, chest pain or shortness of breath, return to the ER. 3. Further follow up with Dr Juarez. Greater than 30 minutes discharging and coordinating care. /[id number]/MODL MTDD
--- NOTE | 2017-11-11 11:00 | ASMTCMCOM ---
CM Note CM Note Notes: [facility] Pt dghtr notified. Orders sent in [employer]. Date Signed: 11/11/2017 11:00 AM Electronically Signed By:IRVIN Pablo
[2017-11-11] MEDS ORDERED: CEPHALEXIN 250 MG CAP PO SCH (12:00)
--- NOTE | 2017-11-11 13:17 | NEUSURGPN ---
Assessment/Plan: Assessment: 86 yo female that is admitted to with back pain and multiple compression fractures(found to be old on MRI) Plan: -pt with majority lower back pain -MRI of the T and L spine show old compression fractures of T1, T2, T12, L1, L2- no acute compression fractures -noted most severe stenosis at L4/5 and L5/S1 with moderate to severe BNFS -ordered a caudal injection with IR yesterday. Per patient, pain is greatly improved and she is doing well -No brace needed for old fractures -Neurosurgery will sign off, can follow up as needed -call with any questions or concerns Saw and examined patient today 11/11/17 at 0820 Subjective: Pain nearly gone post injection Objective: AAO x 3, PERRLA/EOMI no droop CN 2-12 grossly intact +lt touch 5/5 BUE/BLE = Neuro Check Frequency: per routine Urinary Catheter in Place: No - Physician Discussed Patient with : Larry Neurosurgery Physical Exam - Vitals, I&O, Labs I and O 11/10/17 11/11/17 11/12/17 05:59 05:59 05:59 Intake Total 610 350 Output Total 750 250 Balance -140 100 Weight 55.13 kg 54.998 kg Intake: Oral (ml) 610 350 Output: Urine (ml) 750 250 Bedpan 350 Bedside Commode 400 250 Other: Intake Quantity No: needs to drink more Sufficient Number of Voids Bedpan 1 Bedside Commode 3 2 Incontinence 1 1 1 Vital Signs Temp Pulse Resp BP Pulse Ox 36.4 C 66 16 187/86 H 98 11/10/17 23:51 11/11/17 08:00 11/11/17 08:00 11/11/17 09:09 11/11/17 08:00 Laboratory Results 11/11/17 05:30 ICD10 Worksheet Patient Problems: Problems Problem Status Onset Lumbar vertebral fracture Acute Thoracic vertebral fracture Acute Urinary tract infection Acute Weakness Acute
--- NOTE | 2017-11-11 13:47 | ASDISCHSUM ---
Discharge Information Plan Status:SNF Medically Cleared to Leave: Discharge Date:11/11/2017 12:00 PM D/C Disposition:Custodial Facility ADT D/C Disposition:Custodial Facility Projected Discharge Date:11/12/2017 11:00 AM Transportation at D/C:Wheelchair Van Discharge Delay Reason: Follow-Up Date:11/12/2017 11:00 AM Discharge Slot: Final Diagnosis: Placement Information Referral Type:*Halfway/SNF Referral ID:[id number] Provider Name:[facility] Address 1:[address] Address 2: City:[place] Selection Factors: State:[place] Patient Contact Information Contact Name:SREEDHAR Relationship: Address: Home Phone: Work Phone: City: [facility] Phone: [facility] Code: Email: Financial Information Financial Class: Primary Plan Desc:MEDICARE INPATIENT Primary Plan Number:[id number] Secondary Plan Desc:[facility]m XR [facility] Secondary Plan Number:[id number] Assessment Information [facility] CM Progress Note CM Note CM Note Notes: Chart reviewed. S/P mechanical fall. Lives at [facility]. PT and OT pending. Patient needs TBD at this time. CM to follow. Date Signed: 11/08/2017 11:31 AM Electronically Signed By:Suyapa Clifton RN [facility] CM Progress Note CM Note CM Note Notes: At this time PT rec is SNF, spoke w pt and dghtr who request referral to [facility]; [facility] CM to follow. Date Signed: 11/10/2017 12:34 PM Electronically Signed By:IRVIN Pablo [facility] CM Progress Note CM Note CM Note Notes: [facility] Pt dghtr notified. Orders sent in [employer]. Date Signed: 11/11/2017 11:00 AM Electronically Signed By:IRVIN Pablo Intervention Information Intervention Type:*Incorrect Registration Date of Service:11/08/2017 08:34 AM Patient Type:Inpatient Staff Member:CINDY Mendenhall Susan Hours: Discipline: Severity: Comment:
[2017-11-13] MEDS ORDERED: ALENDRONATE SODIUM 70 MG TAB PO SCH (07:00)
== END 2017-11-11 12:00 | DRG 543 ==
LOC: EDUNIT# → INTOOBSV 11-08 01:40 → F3N 11-08 03:30 → OBSVTOIN 11-08 12:39
PROVIDERS: ADMIT Family Medicine; ATTEND Family Medicine
DX: M48.54XA Collapsed vertebra, not elsewhere classified, thoracic region, initial encounter for fracture (principal); N39.0 Urinary tract infection, site not specified; M48.56XA Collapsed vertebra, not elsewhere classified, lumbar region, initial encounter for fracture; M48.061 Spinal stenosis, lumbar region without neurogenic claudication; M48.07 Spinal stenosis, lumbosacral region; W01.0XXA Fall on same level from slipping, tripping and stumbling without subsequent striking against object, initial encounter; Y92.128 Other place in nursing home as the place of occurrence of the external cause; I10 Essential (primary) hypertension; E78.5 Hyperlipidemia, unspecified; F03.90 Unspecified dementia, unspecified severity, without behavioral disturbance, psychotic disturbance, mood disturbance, and anxiety; D63.8 Anemia in other chronic diseases classified elsewhere; R29.6 Repeated falls; R26.89 Other abnormalities of gait and mobility; Z66 Do not resuscitate
CPT/HCPCS: 92507-GN; 92523-GN; 97116-GP; 97162-GP; 97166-GO; 97530-GP; G8978-GP-CL; G8979-GP-CJ; G8987-GO-CK; G8988-GO-CI; G9165-GN-CK; G9166-GN-CJ; G9167-GN-CJ; J1170; J2060; J2405; J3301; Q9967

== ENCOUNTER 2018-01-23 18:50 | Emergency (ER) | payer OTHER, BC ==
--- NOTE | 2018-01-23 19:03 | EDPHY ---
H & P Time Seen by Provider: 01/23/18 18:50 HPI/ROS: CHIEF COMPLAINT: Left facial pain after fall HISTORY OF PRESENT ILLNESS: This is an 87-year-old female who arrives by ambulance as a limited trauma plus. She reportedly fell in the bathroom, striking the left side of her head and face. No loss of consciousness. 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 The patient herself is complaining of left cheekbone pain. She denies headache. She denies jaw pain. She does not have neck or back pain. She does not take anticoagulants. She resides at [facility]. Daughter lives locally. She is . REVIEW OF SYSTEMS: A ten point review of systems was performed and is negative with the exception of the items mentioned in the HPI. Past medical history: 1. Dementia 2. HTN 3. Hyperlipidemia Past surgical history: Hysterectomy, appendectomy, lumbar laminectomy Social history: She resides at [facility]. No tobacco or alcohol use. General Appearance: Alert. Vital signs reviewed. Abelardo coma score 15. BP 171/87 Head/face: No obvious external injury. Tender to palpation over the left zygoma. Eyes: Pupils equal and round, no conjunctival injection, no discharge. ENT, Mouth: Mucous membranes are moist, no oropharyngeal erythema or edema. Neck: Nontender to palpation of the cervical spine in the midline. No pain with active range of motion of her neck. Respiratory: Lungs are clear to auscultation; no wheezes, rales, or rhonchi. Thorax: Nontender. No crepitus. Cardiovascular: Regular rate and rhythm; no murmur, rub, or gallop. Gastrointestinal: Abdomen is soft and nontender, no masses or organomegaly, bowel sounds normal. Well-healed lower abdominal scar. Skin: Warm and dry, no rashes on exposed skin, normal color. Back: Nontender to palpation over the thoracolumbar spine. Extremities: No lower extremity edema, no calf tenderness or swelling. Nontender to palpation over all 4 extremities, no bony deformities. Neurological: Alert and oriented to person, place, situation, gives the year as 2011. On arrival she was having repetitive movements of both upper extremities--with light pressure on her arms the movements stopped. They would persist when the pressure was released but resolved spontaneously shortly after her arrival in the department. She was alert the entire time that she was having repetitive are movements. Moving all four extremities easily and equally. Psychiatric: Normal affect. - Medical/Surgical History Hx Asthma: No Hx Chronic Respiratory Disease: No Hx Diabetes: No Hx Cardiac Disease: Yes Hx Renal Disease: No Hx Cirrhosis: No Hx Alcoholism: No Hx HIV/AIDS: No Hx Splenectomy or Spleen Trauma: No Other PMH: PMH:skin cancer, HTN, high chol, memory loss, dementia, hx falls,. chronic shoulder pain left, arthritis. PSH:appy, hyst, spinal fusion, lami, cyst removal - Social History Smoking Status: Never smoked Constitutional: Initial Vital Signs Temperature (C) 36.8 C 01/23/18 19:18 Heart Rate 82 01/23/18 19:18 Respiratory Rate 22 H 01/23/18 19:18 Blood Pressure 171/87 H 01/23/18 19:18 O2 Sat (%) 92 01/23/18 19:18 O2 Delivery Mode Room Air Allergies/Adverse Reactions: aspirin Allergy (Verified 01/23/18 19:18) meloxicam Allergy (Verified 01/23/18 19:18) Penicillins Allergy (Verified 01/23/18 19:18) Home Medications: Medication Instructions Recorded Atorvastatin Calcium [Lipitor 20 20 mg PO HS 12/01/16 mg (*)] Cyanocobalamin [Vitamin B12 (*)] 500 mcg PO HS 12/01/16 Herbals/Supplements -Info Only 1 ea PO DAILY 12/01/16 Hydrochlorothiazide [HCTZ (*)] 12.5 mg PO DAILY 12/01/16 Memantine HCl [Namenda 5 mg (*)] 5 mg PO HS 12/01/16 Tolterodine Tartrate [Detrol 1MG 1 mg PO DAILY 12/01/16 (*)] Acetaminophen [Tylenol 325mg (*)] 1,300 mg PO BID PRN 11/08/17 Alendronate Sodium [Fosamax 70 MG 70 mg PO SA@0700 11/08/17 (*)] Folic Acid [Folic Acid 1 MG (*)] 1 mg PO DAILY 11/08/17 Irbesartan [Avapro 150 mg (*)] 300 mg PO DAILY 11/08/17 Cephalexin [Keflex (*)] 250 mg PO Q6HRS #11 cap 11/11/17 Lidocaine 5% [Lidoderm 5% Patch] 1 ea TD DAILY patch 12/21/17 Patch Removal 1 ea TD DAILY21 patch 11/11/17 Polyethylene Glycol 3350 [Miralax 17 gm PO DAILY PRN pkt 11/11/17 17 gm (*)] Sennosides/Docusate Sodium 1 - 2 tab PO BID tab 11/11/17 [Senokot-S] Medical Decision Making ED Course/Re-evaluation: Left zygoma pain after fall. The repetitive movements of her upper extremities stopped shortly after her arrival in the emergency department. Will obtain a CT scan of her head and face. CT scan of head without acute injury. Facial bone CT reveals hematoma left masseter, presumably the source of her pain. On re-exam, she is able to fully open her mouth and to chew. No new injuries discovered. Her daughter arrived in the emergency room and is comfortable with her mother returning to [facility]. Transportation will be arranged. Differential Diagnosis: I considered a differential diagnosis of traumatic injury that includes but is not limited to intracranial hemorrhage, skull fracture, concussion, vertebral injury, spinal cord injury, intrathoracic injury, intra-abdominal injury, long bone fractures, contusions, abrasions, and lacerations. Departure - Departure Disposition: Home, Routine, Self-Care Clinical Impression: Left cheek hematoma Condition: Good Instructions: Contusion in Adults (ED) Additional Instructions: There is a bruise/hematoma inside your left cheek muscle. Try tylenol for pain, apply ice. There might be some pain with chewing. Adult Pain & Fever Control: We recommend Acetaminophen (Tylenol) and Ibuprofen (Motrin,Advil) for pain and fever control. When fever is high or pain severe, both drugs can be used at the same time, but at different intervals. Please note the time differences. Your dose is: Acetaminophen [650]mg every 4 to 6 hours Ibuprofen [400]mg every [8] hours with food Note: do not take Acetaminophen with Hydrocodone (Vicodin, Lortab) or Oycodone (Percocet). These medications also contain Acetaminophen. No more than 3000mg of Acetaminophen should be taken in 24 hours (for an adult). Referrals: Orestes Morel MD [Primary Care Provider] - As per Instructions
[2018-01-23 19:21] VITALS: BP 171/87; PULSE 82; RESP 22; TEMP 98.2; O2SAT 92
== END 2018-01-23 21:01 | disposition home or self-care (01) ==
LOC: EDUNIT#
DX: S00.83XA Contusion of other part of head, initial encounter (principal); I10 Essential (primary) hypertension; Z85.828 Personal history of other malignant neoplasm of skin; W01.198A Fall on same level from slipping, tripping and stumbling with subsequent striking against other object, initial encounter; Y92.002 Bathroom of unspecified non-institutional (private) residence as the place of occurrence of the external cause
CPT/HCPCS: 82947-QW

== ENCOUNTER → 2018-07-07 | Outpatient (CLI) | payer OTHER, BC | LOC: CIMAGING 16:52 | PROVIDERS: ATTEND Internal Medicine | DX: I50.9 Heart failure, unspecified (principal); J98.11 Atelectasis | CPT/HCPCS: 71046-PO ==

== ENCOUNTER 2018-08-27 17:27 | Inpatient (IN) | payer OTHER, BC ==
[2018-08-27] MEDS ORDERED: fentaNYL 100 MCG/2 ML INJ IVP ONE (17:39)
--- NOTE | 2018-08-27 17:43 | EDPHY ---
H & P Time Seen by Provider: 08/27/18 17:27 HPI/ROS: CHIEF COMPLAINT: Head injury HISTORY OF PRESENT ILLNESS: With her daughter fell back and hit her head on the toilet seat in the bathroom. Arrives by EMS complaining of pain in the back of her head. Does not remember the fall. She has bleeding from a laceration on the back of her head. Denies neck or back pain to me. Denies weakness or numbness in extremities. Is a little bit more sleepy than usual per the daughter. Daughter does not report seizure activity or syncope. REVIEW OF SYSTEMS: Eye: no change in vision ENT: no sore throat Cardiac: no chest pain or syncope Pulmonary: no cough or SOB Abdomen: no vomiting, diarrhea, abdominal pain Musculoskeletal: HPI Skin: Scalp laceration Neuro: Headache Constitutional: no fever : no urinary symptoms A comprehensive 10 point review of systems is otherwise negative aside from elements mentioned in the history of present illness. PAST MEDICAL HISTORY: Multiple falls, hypertension, hypercholesterolemia. Spinal fusion, appendectomy, hysterectomy. Has some memory loss and dementia. Social history: [place] resident, here with daughter. General Appearance: Alert and conversant, cooperative. Eyes: Pupils 2 mm, extraocular motion intact. ENT, Mouth: Normal mucous membranes. Respiratory: Normal respiratory effort, breath sounds equal, lungs are clear to auscultation. Cardiovascular: Regular rate and rhythm. 3/6 systolic murmur. Gastrointestinal: Abdomen is soft and non tender. Neurological: Patient's eyes are closed but will open to voice. Good movement of all 4 extremities. Sensation intact to light touch. She has a little bit shortened left leg which is chronic, a little bit of restriction of motion on the left leg which is also chronic per the daughter. Skin: Occipital laceration not easily viewed beneath the C-collar. Musculoskeletal: Upper thoracic and lower cervical spine tenderness. Psychiatric: Not agitated. Emergency Department course/MDM: Head and cervical spine CT ordered. EKG and labs. 1921: Occipital scalp laceration anesthetized by myself, cervical collar removed and cleared clinically by myself. Negative head and cervical spine CT per Dr. Sherwood. Zofran 4 mg IV for nausea and vomiting. Admission for monitoring as she is pretty concussed after her fall. Trauma surgery. Hospitalist consult. Smoking Status: Never smoked Constitutional: Initial Vital Signs Temperature (C) 36.5 C 08/27/18 17:32 Heart Rate 90 08/27/18 17:32 Respiratory Rate 16 08/27/18 17:32 Blood Pressure 182/92 H 08/27/18 17:32 O2 Sat (%) 94 08/27/18 17:32 O2 Delivery Mode Nasal Cannula O2 (L/minute) 2 Allergies/Adverse Reactions: aspirin Allergy (Verified 01/23/18 19:18) meloxicam Allergy (Verified 01/23/18 19:18) Penicillins Allergy (Verified 01/23/18 19:18) Home Medications: Medication Instructions Recorded Atorvastatin Calcium [Lipitor 20 20 mg PO HS 12/01/16 mg (*)] Cyanocobalamin [Vitamin B12 (*)] 500 mcg PO HS 12/01/16 Herbals/Supplements -Info Only 1 ea PO DAILY 12/01/16 Hydrochlorothiazide [HCTZ (*)] 12.5 mg PO DAILY 12/01/16 Memantine HCl [Namenda 5 mg (*)] 5 mg PO HS 12/01/16 Acetaminophen [Tylenol 325mg (*)] 650 mg PO TID PRN 11/08/17 Alendronate Sodium [Fosamax 70 MG 70 mg PO SA@0700 11/08/17 (*)] Folic Acid [Folic Acid 1 MG (*)] 1 mg PO HS 11/08/17 Irbesartan [Avapro 150 mg (*)] 300 mg PO DAILY 11/08/17 guaiFENesin [Mucinex 600 MG (*)] 600 mg PO BID PRN 08/27/18 Medical Decision Making - Diagnostics EKG Interpretation: 12-lead EKG interpreted by me; official reading is in computer system. My interpretation is sinus rhythm rate 81 with APC and early anterior RS transition. Imaging Results: Imaging Impressions Head CT 08/27/18 17:38 Impression: Soft tissue swelling of the posterior scalp without evidence for skull fracture. No evidence for acute intracranial abnormality. Moderate periventricular and deep hemispheric white matter change that can be seen with small vessel ischemic disease. Generalized cerebral atrophy. CT Cervical Spine Without Contrast History: Trauma. Fall. Technique: 1.5-mm helical images were obtained of the cervical spine without contrast. Findings: No evidence for acute fracture. The head is turned to the left with C1 rotated on C2. Degenerative change is seen in the anterior arch of the C1 articulation with the dens, causing no significant encroachment. There is multilevel degenerative disk and degenerative joint disease cervical spine. No evidence for prevertebral soft tissue swelling. Uncovertebral joint hypertrophy and spurring and facet arthropathy is seen at multiple levels. The level of most significant neural foraminal encroachment is at C4-C5 on the right with moderate to severe right neural foraminal narrowing and on the left at C3-C4 with severe left and moderate right neural foraminal narrowing. Vascular calcifications are seen in the right carotid, indicating atherosclerotic change. Impression: No evidence for acute fracture cervical spine. Multilevel degenerative change cervical spine. Results called and discussed with Ian Messina MD on August 27, 2018 at [address] 08/27/18 17:43 Impression: 1. Stable mild anterior wedge compression deformity of T1 and T2 vertebral bodies, moderate to severe compression deformity of T12, and severe compression deformity of L1 to comparison MRI. No new acute fracture is seen in the thoracic spine. Stable degenerative change. 2. Mild dilatation of the ascending thoracic aorta (4.2 cm) with evidence of underlying atherosclerotic change. Atherosclerotic change coronary arteries. 3. Evidence of underlying interstitial lung disease in both lungs. Imaging: Discussed imaging studies w/ sports reporter Radiologist Procedures: Procedure: Laceration repair. Verbal consent was obtained from the patient. The 2.5 cm laceration on the scalp was anesthetized using 0.5% bupivacaine with epinephrine. The wound was irrigated with standard emergency department protocol, draped and explored. There were no deep structures involved. No foreign body found. The wound was repaired with 3 0 Prolene. The wound repair was simple. Excellent hemostasis was obtained. Wound care instructions were discussed and the patient was warned regarding scarring. The procedure was performed by myself. Differential Diagnosis: Differential diagnosis considered for head injury including but not limited to concussion, skull fracture, intraparenchymal contusion, subarachnoid, subdural and epidural hematoma. Consult/Admit Bed Type: [place] 1930, Parker 1948 - Data Points Laboratory Results: Laboratory Results 08/27/18 17:27 08/27/18 17:27 08/27/18 08/27/18 08/27/18 17:27 17:27 17:27 WBC 8.97 10^3/uL 10^3/uL (3.80-9.50) RBC 4.19 10^6/uL 10^6/uL (4.18-5.33) Hgb 12.7 g/dL g/dL (12.6-16.3) Hct 38.2 % % (38.0-47.0) MCV 91.2 fL fL (81.5-99.8) MCH 30.3 pg pg (27.9-34.1) MCHC 33.2 g/dL g/dL (32.4-36.7) RDW 14.1 % % (11.5-15.2) Plt Count 221 10^3/uL 10^3/uL (150-400) MPV 11.0 fL fL (8.7-11.7) Neut % (Auto) 42.6 % % (39.3-74.2) Lymph % (Auto) 48.4 % H % (15.0-45.0) [place] % (Auto) 7.8 % % (4.5-13.0) Eos % (Auto) 0.9 % % (0.6-7.6) Baso % (Auto) 0.1 % L % (0.3-1.7) Nucleat RBC Rel Count 0.0 % % (0.0-0.2) Absolute Neuts (auto) 3.82 10^3/uL 10^3/uL (1.70-6.50) Absolute Lymphs (auto) 4.34 10^3/uL H 10^3/uL (1.00-3.00) Absolute Monos (auto) 0.70 10^3/uL 10^3/uL (0.30-0.80) Absolute Eos (auto) 0.08 10^3/uL 10^3/uL (0.03-0.40) Absolute Basos (auto) 0.01 10^3/uL L 10^3/uL (0.02-0.10) Absolute Nucleated RBC 0.00 10^3/uL 10^3/uL (0-0.01) Immature Gran % 0.2 % % (0.0-1.1) Immature Gran # 0.02 10^3/uL 10^3/uL (0.00-0.10) PT 12.2 SEC SEC (12.0-15.0) INR 0.88 (0.83-1.16) APTT 27.4 SEC SEC (23.0-38.0) Sodium 135 mEq/L mEq/L (135-145) Potassium 4.2 mEq/L mEq/L (3.3-5.0) Chloride 96 mEq/L L mEq/L (97-110) Carbon Dioxide 26 mEq/l mEq/l (22-31) Anion Gap 13 mEq/L mEq/L (8-16) BUN 25 mg/dL H mg/dL (7-23) Creatinine 0.7 mg/dL mg/dL (0.6-1.0) Estimated GFR > 60 Glucose 122 mg/dL H mg/dL (70-100) Calcium 10.2 mg/dL mg/dL (8.5-10.4) Medications Given: Discontinued Medications Fentanyl (Sublimaze) 50 mcg IVP EDNOW ONE Stop: 08/27/18 17:40 Last Admin: 08/27/18 17:45 Dose: 50 mcg Ondansetron HCl (Zofran) 4 mg IVP EDNOW ONE Stop: 08/27/18 20:12 Last Admin: 08/27/18 20:14 Dose: 4 mg Departure - Departure Disposition: [facility] Acute Clinical Impression: Occipital scalp laceration Qualifiers: Encounter type: initial encounter Qualified Code(s): S01.01XA - Laceration without foreign body of scalp, initial encounter Concussion Qualifiers: Encounter type: initial encounter Loss of consciousness presence/duration: without LOC Qualified Code(s): S06.0X0A - Concussion without loss of consciousness, initial encounter Condition: Good
[2018-08-27 17:49] LABS: PLATELET COUNT 221 10^3/uL (150-400)
--- NOTE | 2018-08-27 17:49 | CPEKG ---
Test Reason : OPEN Blood Pressure : / mmHG Vent. Rate : 081 BPM Atrial Rate : 080 BPM P-R Int : 212 ms QRS Dur : 074 ms QT Int : 354 ms P-R-T Axes : 020 -04 003 degrees QTc Int : 411 ms Sinus rhythm Atrial premature complex Borderline prolonged [place] interval Abnormal R-wave progression, early transition Confirmed by Ian Messina ([id number]) on 08/27/2018 5:49:24 PM Referred By: Confirmed By:Ian Messina
[2018-08-27 18:06] LABS: INR 0.88 (0.83-1.16); PROTIME(PATIENT) 12.2 SEC (12.0-15.0)
--- NOTE | 2018-08-27 20:05 | PDGENHP ---
History and Physical History and Physical: HOSPITALIST CONSULTATION NOTE CC: I am asked by Dr. Olivera of the surgery department to assist in the care and assessment of this patient who had a fall with closed head injury today HISTORY: Mrs. Stone is a 87-year-old woman with known dementia, gait instability, previous falls, who apparently was with her daughter today and had a fall going backwards landing on the back of her head where she suffered a laceration with bleeding. The patient tells me she tripped, however the patient 's daughter is not here to corroborate the story at this moment and this is not detailed in the ER physician's note. As best I am aware there was no loss of consciousness. The patient at this time does complain of some mild scalp pain and some nausea but no neck pain. Notably however the patient complains to me when I ask her that there is pain in her chest back abdomen both arms and both legs. Very really tired down to things the most specific finding I can come up with aside from the scalp laceration is some pain in her left hand wrist area which seems possibly new. Additionally the patient does complain to me of some nausea right now, I am unable to clarify how long it has been there. However she has no abdominal pain and denies any vomiting. Agrees reported that the daughter find her to be sleepier than usual today, though I cannot tell whether that was noted before or only after the fall. I am unable to determine that there any other antecedent symptoms before this fall aside from her chronic issues. 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 I have reviewed the list and ordered appropriate medicines. PHYSICAL EXAMINATION: Vital Signs: Stable without fever Examination: General: alert, oriented, good mentation, relaxed Skin: warm, dry, good color, no rash HEENT: normal Neck: no mass or jvd Resps: relaxed Lungs: clear breath sounds Heart: regular, no murmur Abdomen: soft, nondistended, nontender, +BS, no mass Upper Extremities: Some mild pain and tenderness in her left wrist and hand with no visible or palpable abnormalities and no decreased range of motion, strength appears symmetric compared to the right Lower Extremities: no edema, warm No Bleeding or bruising Neurologic: normal speech/language, 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 There are old compression fractures in the thorax but no new compression fractures. There is old interstitial lung disease. I also reviewed CT head images and this shows atrophy with large ventricles and scalp hematoma 12 LEAD EKG: I reviewed the tracing from the ER showing sinus rhythm with PACs nothing acute appearing ASSESSMENT: * status post fall which sounds mechanical, chronic history of gait instability and falls * closed head injury with possible concussion based on mild changes in mentation and nausea * scalp laceration * high fall risk * possible mild dehydration with elevated BUN; patient takes hydrochlorothiazide at home * mild pain in her left wrist and hand * osteoporosis with old but no new compression fractures PLANS: * Agree with holding her diuretic at this point and giving some gentle hydration ; she has chronic hypoxemic lung disease and I suspect could have some pulmonary hypertension so will need to watch that she does not develop volume overload * Fall risk precautions * PT and OT * Concussion protocols * Doubt there is any fracture at her hand wrist but will x-ray this as she has known osteoporosis * Case management consultation I have reviewed the patient's case in detail with Dr. Angélica Messina I have reviewed the patient's past medical records as part of this assessment, including previous hospital admission records
[2018-08-27] MEDS ORDERED: ONDANSETRON 4 MG/2 ML VIAL IVP ONE (20:11)
[2018-08-27] MEDS ORDERED: ONDANSETRON 4 MG/2 ML VIAL ONE (20:12)
[2018-08-27] MEDS ORDERED: ONDANSETRON 4 MG/2 ML VIAL IVP PRN (21:50)
[2018-08-27] MEDS: LR 1,000 ML IV SCH (22:38)
--- NOTE | 2018-08-28 03:52 | GHP ---
DATE OF ADMISSION: 08/27/2018 ADMITTING DIAGNOSES: 1. Concussion. 2. Dementia. 3. Occipital scalp laceration requiring 5 stitches. HISTORY: The history is obtained from her daughter. The patient is an 87-year- old female, who had just used the bathroom and had gotten up with a walker to walk to the sink. She washed her hands and stepped backwards falling and hit her head on the toilet. According to her daughter, she was not knocked out. She certainly does not recall the episode. 911 was called and the patient was transported to the hospital. Note is made that she had 2 falls in the prior 2 years, but in the most recent year where she has been in assisted living, she has had 6 falls. She is currently staying at [facility]. There is no history of seizure activity. No history of syncope. She does suffer from memory loss. SOCIAL HISTORY: She does not smoke nor does she drink. ALLERGIES: She is allergic to penicillin manifested by rash. When she took meloxicam in the past, she developed an ulcer. CURRENT MEDICATIONS: Include Fosamax 70 mg weekly and she had her weekly dose today. She takes hydrochlorothiazide 12.5 mg daily. Avapro 300 mg daily, a calcium supplement, Lipitor 20 mg daily, folic acid 1 mg daily, vitamin B12 1000 mcg at bedtime and Namenda 5 mg at bedtime. PAST SURGICAL HISTORY: Include removal of a cyst from her left face. Removal of a skin cancer from her left lower leg which was treated with skin graft. She had a total abdominal hysterectomy for bleeding. She has had cataracts removed with lenses placed. She has had an appendectomy. She initially had a spinal fusion and more recently a laminectomy (level unclear). PAST MEDICAL HISTORY: She has had hypertension for 20 years. She has had hypercholesterolemia for 20 years. She does have dementia. She has a fever. She is known to have a 3/6 systolic ejection murmur. 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 She can walk approximately 60 feet with supervision and she then becomes quite tired. PHYSICAL EXAMINATION: GENERAL: She is seen lying in [facility]. She is arousable and pleasant. She thinks the year is 2019. VITAL SIGNS: Her blood pressure was initially 182/92 and has dropped to 97/72. Her heart rate has dropped from 90-76, and she has become more comfortable. Her room air saturation is 96% on 2 L of nasal cannula. NEUROLOGIC: She is pleasant but confused. She moves all extremities, but she is slightly weaker in the left lower extremity than the right. Her daughter says ever since she was told that her left leg was shorter than the right, she walks on tiptoes on the left leg. HEENT: Skull shows a slightly oblique left occipital laceration that has been surgically repaired with 5 stitches. There is no Gray sign. No raccoon eyes. Extraocular movements were intact. She has normal dental occlusion. NECK: Nontender along the spinous processes, but the muscles are slightly tender. I do not detect any thyroid enlargement. There is no cervical, supraclavicular, axillary or inguinal lymphadenopathy. BACK: Otherwise unremarkable. LUNGS: Clear to auscultation. CARDIAC: Shows a 2-3/6 systolic murmur. ABDOMEN: Generous, soft and nontender. PELVIS: Stable to AP and lateral compression. Chest is stable to AP and lateral compression. EXTREMITIES: Lower extremities otherwise unremarkable. PLAN: To admit her overnight. I do feel she may not be eligible for assisted living again with these multiple falls. I do not feel it is safe for her to go back there this evening. /[id number]/MODL MTDD
[2018-08-28] MEDS: LR 1,000 ML IV SCH (06:42)
[2018-08-28] MEDS: IRBESARTAN 150 MG TAB PO SCH (10:15)
--- NOTE | 2018-08-28 11:47 | HOSPPROG ---
Hospitalist Progress Note Assessment/Plan: Mrs. Stone is a 87-year-old woman with known dementia, gait instability , previous falls, who apparently was with her daughter today and had a fall going backwards landing on the back of her head where she suffered a laceration with bleeding. Today is my first encounter with the patient, chart reviewed. *gait instability with a fall *CHI w possible concussion -low stimulation environment -CT of head shows nothing acute *scalp Laceration -need sutures removed in 10 day *dehydration -HCTZ on hold *left wrist pain -xray shows nothing acute *osteoporosis *Plan: will see how she does w PT and OT/ stop IV fluids. Resume HCTZ. If stable,will dc later today. Subjective: Judy has no complaints, feeling well, not dizzy. Objective: Vital Signs Temp Pulse Resp BP Pulse Ox 37.2 C 58 L 16 141/56 H 91 L 08/28/18 11:45 08/28/18 11:45 08/28/18 11:45 08/28/18 11:45 08/28/18 11:45 08/27/18 08/28/18 08/29/18 05:59 05:59 05:59 Intake Total 30 1000 Output Total 500 100 Balance -470 900 PT 12.2 SEC (12.0-15.0) 08/27/18 17:27 INR 0.88 (0.83-1.16) 08/27/18 17:27 - Physical Exam Constitutional: no apparent distress, appears nourished Eyes: PERRL Ears, Nose, Mouth, Throat: hearing normal Cardiovascular: regular rate and rhythym, systolic murmur (soft at the left sternal border) Respiratory: no respiratory distress Skin: warm, other (sutures on occipital area) Neurologic: AAOx3 Psychiatric: interacting appropriately ICD10 Worksheet Patient Problems: Problems Problem Status Onset Concussion Acute Occipital scalp laceration Acute Lumbar vertebral fracture Acute Thoracic vertebral fracture Acute Urinary tract infection Acute Weakness Acute
--- NOTE | 2018-08-28 12:14 | TRAUMAPNT ---
Trauma Tertiary Progress Note New Findings: no new findings Assessment/Plan: PAD#1 08/28/2018 Assessment: No new findings; Assessment by OT,PT, Speech in progress Plan: If proves to be stable and safe, expect to return to assisted living. Subjective: The back of my head hurts Objective: Vital Signs Temp Pulse Resp BP Pulse Ox 37.2 C 58 L 16 141/56 H 91 L 08/28/18 11:45 08/28/18 11:45 08/28/18 11:45 08/28/18 11:45 08/28/18 11:45 08/27/18 08/28/18 08/29/18 05:59 05:59 05:59 Intake Total 30 1000 Output Total 500 100 Balance -470 900 PT 12.2 SEC (12.0-15.0) 08/27/18 17:27 INR 0.88 (0.83-1.16) 08/27/18 17:27 - C-Spine Clearance Cervical Spine Cleared: Yes Provider who Cleared Cervical Spine: Jarod Physical Exam - Physical Exam General Appearance: WD/WN, alert, mild distress EENT: other (5 sutures in left occipital laceration.) Neck: other (left paraspinous muscles tender) Respiratory: chest non-tender, lungs clear, normal breath sounds Cardiac/Chest: regular rate, rhythm Abdomen: normal bowel sounds, non-tender, soft Pelvic Exam: deferred Rectal: deferred Back: Normal inspection Skin: normal color, warm/dry Neuro/Psych: alert, normal mood/affect Time Spent w/Patient (minutes): 15
[2018-08-28] MEDS: HYDROCHLOROTHIAZIDE 25 MG TAB PO SCH (12:34)
--- NOTE | 2018-08-28 14:51 | ASMTCMCOM ---
CM Note CM Note Notes: Reviewed chart. Pt was transported to the Emergency Department via EMS, s/p a mechanical fall. Pt sustained a closed head injury. History includes dementia, gait instability, previous falls, interstitial lung disease with hypoxemia, osteoporosis, compression fractures, HTN, HLD. Pt resides at [facility]. Her dghtr is involved in her care. Pt was admitted for further evaluation and observation. PT recommends HHC with 24 hrs supervision and a front wheeled walker vs SNF. OT recommends HHC at pt's Assisted Living facility. Per MD notes, pt will likely be able to return to [facility] with HHC if her condition continues to improve. Discharge needs remain unclear at this time. CM will continue to follow. Discharge Plan: To be determined, likely home to [facility] with HHC (PT/OT/HUMAN RESOURCES ANALYST) Date Signed: 08/28/2018 02:51 PM Electronically Signed By:Chelsea Chaudhari RN
--- NOTE | 2018-08-28 14:52 | PDMN ---
Medical Necessity Medical necessity: [facility] Pulmonary Disease GR yo w/ closed head injury secondary fall, chronic hx gait instability and falls, concussion, seen by trauma, changes to mentation and nausea w/ scalp laceration, cont to be high fall risk, initially obs but during stay sats dropped to 85% on RA, tachypneac at times, O2 started, suspect fluid overload, CXR for further eval, she will need another MN stay for further eval of hypoxia and recent fall. PT/OT eval. Change to IP status 08/28/18 @1421 per MD order
[2018-08-28] MEDS ORDERED: CYANO/VITAMIN B12 1000 MCG TAB PO SCH (21:00)
[2018-08-28] MEDS ORDERED: MEMANTINE HCL 5 MG TAB PO SCH (21:00)
[2018-08-28] MEDS ORDERED: ATORVASTATIN CALCIUM 20 MG TAB PO SCH (21:00)
[2018-08-28] MEDS ORDERED: FOLIC ACID 1 MG TAB PO SCH (21:00)
[2018-08-29] MEDS: ACETAMINOPHEN 325 MG TAB PO PRN ×2 (05:27→08:25)
[2018-08-29 07:42] VITALS: BP 125/60
[2018-08-29] MEDS: IRBESARTAN 150 MG TAB PO SCH (08:24)
[2018-08-29] MEDS: HYDROCHLOROTHIAZIDE 25 MG TAB PO SCH (08:24)
--- NOTE | 2018-08-29 09:12 | HOSPPROG ---
Hospitalist Progress Note Assessment/Plan: Mrs. Stone is a 87-year-old woman with known dementia, gait instability , previous falls, who apparently was with her daughter today and had a fall going backwards landing on the back of her head where she suffered a laceration with bleeding. *gait instability with a fall *CHI w possible concussion -low stimulation environment -CT of head shows nothing acute *hypoxemia -reviewed chest x ray which showed nothing acute -O2 sats on room air are 88-92% *scalp Laceration -need sutures removed in 10 day *dehydration -resolved *left wrist pain -xray shows nothing acute *osteoporosis *Plan: therapies are recommending SNF or 24 hour home care, patient says she has care every morning. CM will f/u with the patient's daughter. Subjective: Negar has no complaints, feeling fine. Objective: Vital Signs Temp Pulse Resp BP Pulse Ox 37.0 C 53 L 16 125/60 H 93 08/29/18 07:39 08/29/18 07:39 08/29/18 07:39 08/29/18 08:24 08/29/18 07:39 08/28/18 08/29/18 08/30/18 05:59 05:59 05:59 Intake Total 925 Output Total 150 Balance 775 PT 12.2 SEC (12.0-15.0) 08/27/18 17:27 INR 0.88 (0.83-1.16) 08/27/18 17:27 - Physical Exam Constitutional: no apparent distress, appears nourished, not in pain Ears, Nose, Mouth, Throat: hearing normal Cardiovascular: regular rate and rhythym Respiratory: no respiratory distress Skin: warm, other (small occipital head lac w sutures) Musculoskeletal: generalized weakness Neurologic: AAOx3 Psychiatric: interacting appropriately ICD10 Worksheet Patient Problems: Problems Problem Status Onset Concussion Acute Occipital scalp laceration Acute Lumbar vertebral fracture Acute Thoracic vertebral fracture Acute Urinary tract infection Acute Weakness Acute
--- NOTE | 2018-08-29 09:41 | PDIAF ---
- Diagnosis Diagnosis: gait instability, scalp laceration Code Status: Do Not Resuscitate - Medication Management Discharge Medications: Medications to Continue on Transfer Atorvastatin Calcium [Lipitor 20 mg (*)] 20 mg PO HS 12/01/16 [Last Taken ] Cyanocobalamin [Vitamin B12 (*)] 500 mcg PO HS 12/01/16 [Last Taken 11/07/17] Herbals/Supplements -Info Only 1 ea PO DAILY 12/01/16 [Last Taken 11/30/16] Hydrochlorothiazide [HCTZ (*)] 12.5 mg PO DAILY 12/01/16 [Last Taken 11/07/17] Memantine HCl [Namenda 5 mg (*)] 5 mg PO HS 12/01/16 [Last Taken 11/07/17] Acetaminophen [Tylenol 325mg (*)] 650 mg PO TID PRN 11/08/17 [Last Taken 09:00] Alendronate Sodium [Fosamax 70 MG (*)] 70 mg PO SA@0700 11/08/17 [Last Taken ] Folic Acid [Folic Acid 1 MG (*)] 1 mg PO HS 11/08/17 [Last Taken 11/07/17] Irbesartan [Avapro 150 mg (*)] 300 mg PO DAILY 11/08/17 [Last Taken 11/07/17] guaiFENesin [Mucinex 600 MG (*)] 600 mg PO BID PRN 08/27/18 [Last Taken Unknown] Discharge Medications: Refer to the Discharge Home Medication list for PRN reason. PICC Care - Routine: N/A - Orders Services needed: Home Care, Physical Therapy, Occupational Therapy Home Care Face to Face: I certify that this patient was under my care and that I had the required [id number] encounter meeting the encounter requirements on the discharge day. My findings support the fact that the patient is homebound as defined in Home Care Face to Face Continued: CMS Chapter 7 Medicare Benefits Manual 30.1.1 , The condition of the patient is such that there exists a normal inability to leave home and consequently, leaving home would require a considerable and taxing effort. Diet Recommendation: no restrictions on diet Diet Texture: Regular Texture Diet Additional Instructions: Wound Care Follow-Up: Removal of sutures in 8 days. Suture removal is complimentary in uncomplicated cases. Infection or abnormal findings would require reevaluation by the MD. In that case, you may be billed. - Follow Up Care Current Providers and Referrals: Patient,NotPresent [Unknown] - As per Instructions
--- NOTE | 2018-08-29 10:05 | GDS ---
DISCHARGE DIAGNOSES: 1. Gait instability with a fall. 2. Close head injury with possible concussion. 3. Hypoxemia. 4. Scalp laceration. 5. Dehydration. 6. Left wrist sprain. 7. Osteoporosis. HISTORY: Briefly, the patient is an 87-year-old woman with known dementia, gait instability, previou s fall, who was with her daughter today and fell backwards, landing on the back of her head, where sh simone suffered a laceration with bleeding to the back of her head. She was brought to the emergency room , had a CT scan, which showed nothing acute. She was admitted by Trauma Services and evaluated to be stable for discharge. Reviewed her care with the daughter, and with physical therapy and occupation al therapy. She will return to [facility] with more care. HOSPITAL COURSE: 1. Gait instability with fall. Her most difficult time of day is in the morning when she is getting out of bed. The patient states that she has help every morning. 2. Hypoxemia. She received IV fluids, and her hydrochlorothiazide was held. This resolved with sto pping the fluids and resuming her diuretic. 3. Scalp laceration. She needs sutures removed in approximately 8 days. 4. Dehydration, resolved. 5. Left wrist pain. Her x-ray showed nothing acute. DISCHARGE CONDITION: Stable. Blood pressure is 125/60, heart rate 53, respiratory rate of 16, O2 sa turation on 1 L 93%. Temperature is 37 degrees Celsius. DISCHARGE MEDICATIONS: Please see the EMR. DISCHARGE INSTRUCTIONS: 1. To get her scalp sutures removed in approximately 8 days. 2. If she develops fever, chills, worsening shortness of breath, return to the ER. /[id number]/MODL
--- NOTE | 2018-08-29 10:09 | ASMTLACE ---
LACE Length of stay for Answers: Less than 1 day current admission Acuity / Level of Answers: Yes Care: Did the patient have an inpatient admission? Comorbidities - select Answers: Chronic pulmonary disease all that apply Dementia History of falls Other Notes: Osteoarthritis, HTN, HL D # of Emergency department Answers: 3-4 visits in the last 6 months Score: 15 Date Signed: 08/29/2018 10:08 AM Electronically Signed By:Venice Liao
--- NOTE | 2018-08-29 10:14 | ASMTDCNOTE ---
Case Management Discharge Discharge Order Complete? Answers: Yes Patient to Obtain Answers: Other Notes: [facility] Transportation Arranged Answers: Family/Friends Faxed Final Orders Answers: Yes Agency/Facility Transfer Answers: Yes Report Printed & Faxed to Receiving Agency Family Notified Answers: Yes Discharge Comments Notes: Daughter transporting back to [facility]. Home health referral sent to [facility] with directions for them to contact Mariana ramirez. RN/PT and OT requested. Date Signed: 08/29/2018 10:13 AM Electronically Signed By:Venice Liao
--- NOTE | 2018-08-29 17:31 | ASDISCHSUM ---
Discharge Information Plan Status:Assisted Living Medically Cleared to Leave: Discharge Date:08/29/2018 11:10 AM D/C Disposition:Assisted Living ADT D/C Disposition:Home, Routine, Self-Care Projected Discharge Date:08/29/2018 11:00 AM Transportation at D/C:Family Discharge Delay Reason: Follow-Up Date:08/29/2018 11:00 AM Discharge Slot: Final Diagnosis:Concussion, fall, CHI, dementia, occipital scalp laceration Placement Information Referral Type:*Home Health Care Services Referral ID:[id number] Provider Name:[facility] ([facility]) Address 1:[address] [address] Address 2: City:[place] Selection Factors: State:[place] Referral Type:Assisted Living Residence Referral ID:[id number] Provider Name:[facility] Address 1:[address] Phone Number: Address 2: Fax Number: City:[place] Selection Factors: State:[place] Patient Contact Information Contact Name:ANGELA Relationship:Daughter Address:[address] Work Phone: City:[place] Alternate Phone: State/Zip Code:[place] [address] Email: Financial Information Financial Class:Medicare Primary Plan Desc:MEDICARE INPATIENT Primary Plan Number:[id number] Secondary Plan Desc:SwiftPayMD(TM) by [employer] [facility] Secondary Plan Number:[id number] Assessment Information LACE LACE Length of stay for Answers: Less than 1 day current admission Acuity / Level of Answers: Yes Care: Did the patient have an inpatient admission? Comorbidities - select Answers: Chronic pulmonary disease all that apply Dementia History of falls Other Notes: Osteoarthritis, HTN, HL D # of Emergency department Answers: 3-4 visits in the last 6 months Score: 15 Date Signed: 08/29/2018 10:08 AM Electronically Signed By:Venice Liao [facility] CM Progress Note CM Note CM Note Notes: Reviewed chart. Pt was transported to the Emergency Department via EMS, s/p a mechanical fall. Pt sustained a closed head injury. History includes dementia, gait instability, previous falls, interstitial lung disease with hypoxemia, osteoporosis, compression fractures, HTN, HLD. Pt resides at [facility]. Her dghtr is involved in her care. Pt was admitted for further evaluation and observation. PT recommends HHC with 24 hrs supervision and a front wheeled walker vs SNF. OT recommends HHC at pt's Assisted Living facility. Per MD notes, pt will likely be able to return to [facility] with HHC if her condition continues to improve. Discharge needs remain unclear at this time. CM will continue to follow. Discharge Plan: To be determined, likely home to [facility] with HHC (PT/OT/PROJECTION TECHNICIAN) Date Signed: 08/28/2018 02:51 PM Electronically Signed By:Chelsea Chaudhari RN Case Management Discharge Plan Note Case Management Discharge Discharge Order Complete? Answers: Yes Patient to Obtain Answers: Other Notes: [facility] Medications Transportation Arranged Answers: Family/Friends Faxed Final Orders Answers: Yes Agency/Facility Transfer Answers: Yes Report Printed & Faxed to Receiving Agency Family Notified Answers: Yes Discharge Comments Notes: Daughter transporting back to [facility]. Home health referral sent to [facility] with directions for them to contact [facility]iana [facility]. RN/PT and OT requested. Date Signed: 08/29/2018 10:13 AM Electronically Signed By:Venice Liao Intervention Information Intervention Type:*Occurence 72 Date of Service:08/29/2018 11:41 AM Patient Type:Inpatient Staff Member:Jenni Henderson Hours: Discipline: Severity: Comment:
== END 2018-08-29 11:10 | disposition home or self-care (01) | DRG 90 ==
LOC: EDUNIT# → F3N 22:07 → OBSVTOIN 08-28 14:21
PROVIDERS: ADMIT Surgery; ATTEND Surgery
PROC: 0HQ0XZZ Repair Scalp Skin, External Approach (ICD-10-PCS; principal; 2018-08-28)
DX: S06.0X9A Concussion with loss of consciousness of unspecified duration, initial encounter (principal); S01.01XA Laceration without foreign body of scalp, initial encounter; S63.502A Unspecified sprain of left wrist, initial encounter; W18.30XA Fall on same level, unspecified, initial encounter; W22.09XA Striking against other stationary object, initial encounter; Y92.192 Bathroom in other specified residential institution as the place of occurrence of the external cause; Y93.E9 Activity, other interior property and clothing maintenance; I10 Essential (primary) hypertension; F03.90 Unspecified dementia, unspecified severity, without behavioral disturbance, psychotic disturbance, mood disturbance, and anxiety; M81.0 Age-related osteoporosis without current pathological fracture; Z98.1 Arthrodesis status; Z91.81 History of falling
CPT/HCPCS: 92523-GN; 96374; 97161-GP; 97166-GO; 97530-GO; 97535-GO; G0378; G8978-GP-CK; G8979-GP-CJ; G8987-GO-CJ; G8988-GO-CI; G9168-GN-CL; G9169-GN-CL; J2405; J3010